=== PATIENT | female | born 1955 | race Hispanic/Latino ===

== ENCOUNTER 2022-11-11 14:32 | Emergency (ER) | payer OTHER ==
--- OUTSIDE RECORDS SUMMARY | 2022-11-11 14:37 | XMS REPORT | Continuity of Care Document ---
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 01-18 [facility] 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 00:00: Medical s/p simple s/p simple 00 Ce nter mastectomy mastectomy [id number] PAD Problem Common (periphera Spirit l artery - CHI disease) [facility] [id number] Type 2 Problem Common diabetes Spirit mellitus - [facility] with [facility] long-term current use of insulin 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 - [facility]I stage 3B disease ([facility] [id number] Osteoarthr Problem Co mmon itis of Spirit multiple - CHI joints, [facility] osteoarthr Center itis type [id number] Acquired Problem Comm on hypothyroi Spirit dism - CHI [facility] [id number] Mixed Problem Common hyperlipid Spirit emia - CHI [facility] [id number] 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, [facility] trigger [facility] [id number] Essential Problem Comm on hypertensi Spirit on [facility] [id number] Other Problem Common eczema [facility] [id number] Vitamin D Problem Comm on deficiency [facility] disease [facility] [id number] Age-relate Problem Com mon d Spirit osteoporos - [facility] is without [facility] pathologic [facility] Center fracture [id number] Noncomplia Problem Co mmon nce with Spirit dietary [facility] restrictio [facility] [id number] Hypocalcem Problem Comm on ia [facility] [id number] Pruritic Problem Comm on dermatitis [facility] [id number] Dermatitis Problem Co mmon [facility] Allergies, Adverse Reactions, Alerts This patient has no known allergies or adverse reactions. Social History Social Habit Start Date Stop Date Quantity Comments Source History of Common [facility] - Tobacco Use [facility] Alcohol intake 2016-01-20 2016-01-20 Current [facility] 00:00:00 00:00:00 non-drinker of Medical Ce nter alcohol (finding) Sex Assigned At [birth year] [facility] 00:00:00 00:00:00 [facility] Smoking Status Start Date Stop Date Source Never Smoker [facility] Medications Ordered Filled Start Stop Current Ordering Indication Dosage Frequency Signature Comments Components Source Medication Medication Date Date Medication? Clinician (SIG) Name Name Famotidine Famotidine 2020-07 No 1{table QD Famotidine 10 MG 10 MG 1-02 t} 10 MG 00:00: 00 Famotidine Famotidine 2020-07 No 1{table QD Famotidine 10 MG 10 MG 1-02 t} 10 MG 00:00: 00 Famotidine Famotidine 2020-07 No 1{table QD Famotidine 10 MG 10 MG 1-02 t} 10 MG 00:00: 00 Famotidine Famotidine 2020-07 No 1{table QD Famotidine 10 MG 10 MG 1-02 t} 10 MG 00:00: 00 Kenalog Kenalog 2020-07 No 40mg Common (Triamcinol (Triamcinol 0-19 S pirit one) one) 00:00: - CHI [facility] Kenalog Kenalog 2020-1 No 40mg Common (Triamcinol (Triamcinol 0-19 S pirit one) one) 00:00: - CHI 00 [facility] Kenalog Kenalog 2020- No 40mg Common (Triamcinol (Triamcinol 0-19 S pirit one) one) 00:00: - CHI 00 [facility] Kenalog Kenalog 2020- No 40mg Common (Triamcinol (Triamcinol 0-19 S pirit one) one) 00:00: - CHI 00 [facility] Triamcinolo Triamcinolo 2020-0 No 1{appli BID Triamcinol ne ne 6-02 cation} one Acetonide Acetonide 00:00: Acetonide 0.1 % 0.1 % 00 0.1 % Triamcinolo Triamcinolo 2020-0 No 1{appli BID Triamcinol ne ne 6-02 cation} one Acetonide Acetonide 00:00: Acetonide 0.1 % 0.1 % 00 0.1 % Triamcinolo Triamcinolo 2020-0 No 1{appli BID Triamcinol ne ne 6-02 cation} one Acetonide Acetonide 00:00: Acetonide 0.1 % 0.1 % 00 0.1 % Triamcinolo Triamcinolo 2020-0 No 1{appli BID Triamcinol ne ne 6-02 cation} one Acetonide Acetonide 00:00: Acetonide 0.1 % 0.1 % 00 0.1 % Triamcinolo Triamcinolo 2020-0 No 1{appli BID Triamcinol ne ne 6-02 cation} one Acetonide Acetonide 00:00: Acetonide 0.1 % 0.1 % 00 0.1 % Triamcinolo Triamcinolo 2020-0 No 1{appli BID Triamcinol ne ne 6-02 cation} one Acetonide Acetonide 00:00: Acetonide 0.1 % 0.1 % 00 0.1 % Triamcinolo Triamcinolo 1-0 No 1{appli BID Triamcinol ne ne 6-02 cation} one Acetonide Acetonide 00:00: Acetonide 0.1 % 0.1 % 00 0.1 % rosuvastati Yes 20mg QD Take [address] [facility] (CRESTOR) 7-14 by mouth Luke s 20 MG 09:01: daily. Medical tablet 09 Calpine olmesartan- Yes 1{tbl} QD Take [address] hydrochloro 7-14 tablet by Jeffery es thiazide 09:01: mouth Medical (BENICAR 09 daily. Calpine HCT) 40-25 mg per tablet cholecalcif Yes 1000U QD Take 1,[address] tavo, 7-14 Units by [id number] vitamin D3, 09:01: mouth Medic al 1,000 unit 09 daily. Calpine capsule levothyroxi Yes 88ug Take [address] ne 7-14 mcg by [place] (SYNTHROID, 09:01: mouth Medic al LEVOTHROID) 09 Every Center 88 MCG morning on tablet an empty stomach. Rosuvastati Rosuvastati Yes Long 1 tablet Common n Calcium n Calcium [facility] it - [facility] Meloxicam Meloxicam Yes Long 1 tablet Common Garrison as needed [facility] Amlodipine Amlodipine Yes Long 1 tablet Common Besylate Besylate Garrison [facility] Olmesartan Olmesartan Yes Long 1 tablet Common [facility] Alendronate Alendronate Yes Long 1 tablet Common Sodium Sodium Garrison 30 minutes Spir it before the - [facility] first [facility] beverage Medical or Calpine medicine of the day with plain water Levothyroxi Levothyroxi Yes Long 1 tablet Common ne Sodium ne Sodium Garrison in the Sp hailey morning on - CHI an empty [facility] stomach [facility] Vitamin D3 Vitamin D3 Yes Long 2 capsules Common Garrison [facility] Olmesartan Olmesartan No 1{table QD Olmesartan Medoxomil-H Medoxomil-H t} Medoxomil- CTZ 40-25 CTZ 40-25 HCTZ 40-25 MG MG MG Alendronate Alendronate No Alendronat Sodium 70 Sodium 70 e Sodium MG MG 70 MG amLODIPine amLODIPine No amLODIPine Besylate 5 Besylate 5 Besylate 5 MG MG MG Meloxicam Meloxicam No Meloxicam 7.5 MG 7.5 MG 7.5 MG Levothyroxi Levothyroxi No QD Levothyrox ne Sodium ne Sodium ine Sodium 100 MCG 100 MCG 100 MCG Vitamin D3 Vitamin D3 No 2{capsu QD Vitamin D3 25 MCG 25 MCG les} 25 MCG (1000 UT) (1000 UT) (1000 UT) Alendronate Alendronate No Alendronat Sodium 70 Sodium 70 e Sodium MG MG 70 MG Rosuvastati Rosuvastati No Rosuvastat n Calcium n Calcium in Calcium 20 MG 20 MG 20 MG amLODIPine amLODIPine No 1{table QD amLODIPine Besylate 5 Besylate 5 t} Besylate 5 MG MG MG Rosuvastati Rosuvastati No 1{table QD Rosuvastat n Calcium n Calcium t} in Calcium 20 MG 20 MG 20 MG Meloxicam Meloxicam No 1{table Meloxicam 7.5 MG 7.5 MG t_as_ne 7.5 MG eded} Levothyroxi Levothyroxi No QD Levothyrox ne Sodium ne Sodium ine Sodium 100 MCG 100 MCG 100 MCG Rosuvastati Rosuvastati No Rosuvastat n Calcium n Calcium in Calcium 20 MG 20 MG 20 MG amLODIPine amLODIPine No amLODIPine Besylate 5 Besylate 5 Besylate 5 MG MG MG Alendronate Alendronate No Alendronat Sodium 70 Sodium 70 e Sodium MG MG 70 MG amLODIPine amLODIPine No 1{table QD amLODIPine Besylate 5 Besylate 5 t} Besylate 5 MG MG MG methylPREDN methylPREDN No methylPRED ISolone 4 ISolone 4 NISolone 4 MG MG MG Vitamin D3 Vitamin D3 No 2{capsu QD Vitamin D3 25 MCG 25 MCG les} 25 MCG (1000 UT) (1000 UT) (1000 UT) Rosuvastati Rosuvastati No 1{table QD Rosuvastat n Calcium n Calcium t} in Calcium 20 MG 20 MG 20 MG Meloxicam Meloxicam No 1{table Meloxicam 7.5 MG 7.5 MG t_as_ne 7.5 MG eded} Meloxicam Meloxicam No Meloxicam 7.5 MG 7.5 MG 7.5 MG Alendronate Alendronate No Alendronat Sodium 70 Sodium 70 e Sodium MG MG 70 MG Olmesartan Olmesartan No 1{table QD Olmesartan Medoxomil-H Medoxomil-H t} Medoxomil- CTZ 40-25 CTZ 40-25 HCTZ 40-25 MG MG MG Rosuvastati Rosuvastati No 1{table QD Rosuvastat n Calcium n Calcium t} in Calcium 20 MG 20 MG 20 MG Meloxicam Meloxicam No 1{table Meloxicam 7.5 MG 7.5 MG t_as_ne 7.5 MG eded} amLODIPine amLODIPine No 1{table QD amLODIPine Besylate 5 Besylate 5 t} Besylate 5 MG MG MG Alendronate Alendronate No Alendronat Sodium 70 Sodium 70 e Sodium MG MG 70 MG methylPREDN methylPREDN No methylPRED ISolone 4 ISolone 4 NISolone 4 MG MG MG amLODIPine amLODIPine No amLODIPine Besylate 5 Besylate 5 Besylate 5 MG MG MG Levothyroxi Levothyroxi No QD Levothyrox ne Sodium ne Sodium ine Sodium 100 MCG 100 MCG 100 MCG Vitamin D3 Vitamin D3 No 2{capsu QD Vitamin D3 25 MCG 25 MCG les} 25 MCG (1000 UT) (1000 UT) (1000 UT) Alendronate Alendronate No Alendronat Sodium 70 Sodium 70 e Sodium MG MG 70 MG Olmesartan Olmesartan No 1{table QD Olmesartan Medoxomil-H Medoxomil-H t} Medoxomil- CTZ 40-25 CTZ 40-25 HCTZ 40-25 MG MG MG Rosuvastati Rosuvastati No Rosuvastat n Calcium n Calcium in Calcium 20 MG 20 MG 20 MG Meloxicam Meloxicam No Meloxicam 7.5 MG 7.5 MG 7.5 MG Rosuvastati Rosuvastati No 1{table QD Rosuvastat n Calcium n Calcium t} in Calcium 20 MG 20 MG 20 MG Meloxicam Meloxicam No 1{table Meloxicam 7.5 MG 7.5 MG t_as_ne 7.5 MG eded} amLODIPine amLODIPine No 1{table QD amLODIPine Besylate 5 Besylate 5 t} Besylate 5 MG MG MG Alendronate Alendronate No Alendronat Sodium 70 Sodium 70 e Sodium MG MG 70 MG methylPREDN methylPREDN No methylPRED ISolone 4 ISolone 4 NISolone 4 MG MG MG amLODIPine amLODIPine No amLODIPine Besylate 5 Besylate 5 Besylate 5 MG MG MG Levothyroxi Levothyroxi No QD Levothyrox ne Sodium ne Sodium ine Sodium 100 MCG 100 MCG 100 MCG Vitamin D3 Vitamin D3 No 2{capsu QD Vitamin D3 25 MCG 25 MCG les} 25 MCG (1000 UT) (1000 UT) (1000 UT) Alendronate Alendronate No Alendronat Sodium 70 Sodium 70 e Sodium MG MG 70 MG Olmesartan Olmesartan No 1{table QD Olmesartan Medoxomil-H Medoxomil-H t} Medoxomil- CTZ 40-25 CTZ 40-25 HCTZ 40-25 MG MG MG Rosuvastati Rosuvastati No Rosuvastat n Calcium n Calcium in Calcium 20 MG 20 MG 20 MG Meloxicam Meloxicam No Meloxicam 7.5 MG 7.5 MG 7.5 MG Rosuvastati Rosuvastati No 1{table QD Rosuvastat n Calcium n Calcium t} in Calcium 20 MG 20 MG 20 MG Meloxicam Meloxicam No 1{table Meloxicam 7.5 MG 7.5 MG t_as_ne 7.5 MG eded} amLODIPine amLODIPine No 1{table QD amLODIPine Besylate 5 Besylate 5 t} Besylate 5 MG MG MG Alendronate Alendronate No Alendronat Sodium 70 Sodium 70 e Sodium MG MG 70 MG methylPREDN methylPREDN No methylPRED ISolone 4 ISolone 4 NISolone 4 MG MG MG amLODIPine amLODIPine No amLODIPine Besylate 5 Besylate 5 Besylate 5 MG MG MG Levothyroxi Levothyroxi No QD Levothyrox ne Sodium ne Sodium ine Sodium 100 MCG 100 MCG 100 MCG Vitamin D3 Vitamin D3 No 2{capsu QD Vitamin D3 25 MCG 25 MCG les} 25 MCG (1000 UT) (1000 UT) (1000 UT) Alendronate Alendronate No Alendronat Sodium 70 Sodium 70 e Sodium MG MG 70 MG Olmesartan Olmesartan No 1{table QD Olmesartan Medoxomil-H Medoxomil-H t} Medoxomil- CTZ 40-25 CTZ 40-25 HCTZ 40-25 MG MG MG Rosuvastati Rosuvastati No Rosuvastat n Calcium n Calcium in Calcium 20 MG 20 MG 20 MG Meloxicam Meloxicam No Meloxicam 7.5 MG 7.5 MG 7.5 MG amLODIPine amLODIPine No 1{table QD amLODIPine Besylate 5 Besylate 5 t} Besylate 5 MG MG MG Alendronate Alendronate No Alendronat Sodium 70 Sodium 70 e Sodium MG MG 70 MG Vitamin D3 Vitamin D3 No 2{capsu QD Vitamin D3 25 MCG 25 MCG les} 25 MCG (1000 UT) (1000 UT) (1000 UT) Rosuvastati Rosuvastati No 1{table QD Rosuvastat n Calcium n Calcium t} in Calcium 20 MG 20 MG 20 MG Olmesartan Olmesartan No 1{table QD Olmesartan Medoxomil-H Medoxomil-H t} Medoxomil- CTZ 40-25 CTZ 40-25 HCTZ 40-25 MG MG MG Levothyroxi Levothyroxi No QD Levothyrox ne Sodium ne Sodium ine Sodium 100 MCG 100 MCG 100 MCG Meloxicam Meloxicam No 1{table Meloxicam 7.5 MG 7.5 MG t_as_ne 7.5 MG eded} Rosuvastati Rosuvastati No 1{table QD Rosuvastat n Calcium n Calcium t} in Calcium 20 MG 20 MG 20 MG Alendronate Alendronate No Alendronat Sodium 70 Sodium 70 e Sodium MG MG 70 MG Levothyroxi Levothyroxi No Levothyrox ne Sodium ne Sodium ine Sodium 88 MCG 88 MCG 88 MCG Olmesartan Olmesartan No Olmesartan Medoxomil-H Medoxomil-H Medoxomil- CTZ 40-25 CTZ 40-25 HCTZ 40-25 MG MG MG Levothyroxi Levothyroxi No QD Levothyrox ne Sodium ne Sodium ine Sodium 100 MCG 100 MCG 100 MCG amLODIPine amLODIPine No 1{table QD amLODIPine Besylate 5 Besylate 5 t} Besylate 5 MG MG MG Vitamin D3 Vitamin D3 No 2{capsu QD Vitamin D3 25 MCG 25 MCG les} 25 MCG (1000 UT) (1000 UT) (1000 UT) Meloxicam Meloxicam No 1{table Meloxicam 7.5 MG 7.5 MG t_as_ne 7.5 MG eded} Rosuvastati Rosuvastati No 1{table QD Rosuvastat n Calcium n Calcium t} in Calcium 20 MG 20 MG 20 MG Olmesartan Olmesartan No 1{table QD Olmesartan Medoxomil-H Medoxomil-H t} Medoxomil- CTZ 40-25 CTZ 40-25 HCTZ 40-25 MG MG MG Meloxicam Meloxicam No 1{table Meloxicam 7.5 MG 7.5 MG t_as_ne 7.5 MG eded} amLODIPine amLODIPine No amLODIPine Besylate 5 Besylate 5 Besylate 5 MG MG MG Levothyroxi Levothyroxi No Levothyrox ne Sodium ne Sodium ine Sodium 88 MCG 88 MCG 88 MCG Rosuvastati Rosuvastati No Rosuvastat n Calcium n Calcium in Calcium 20 MG 20 MG 20 MG amLODIPine amLODIPine No 1{table QD amLODIPine Besylate 5 Besylate 5 t} Besylate 5 MG MG MG Alendronate Alendronate No Alendronat Sodium 70 Sodium 70 e Sodium MG MG 70 MG Alendronate Alendronate No Alendronat Sodium 70 Sodium 70 e Sodium MG MG 70 MG Levothyroxi Levothyroxi No QD Levothyrox ne Sodium ne Sodium ine Sodium 100 MCG 100 MCG 100 MCG Vitamin D3 Vitamin D3 No 2{capsu QD Vitamin D3 25 MCG 25 MCG les} 25 MCG (1000 UT) (1000 UT) (1000 UT) Olmesartan Olmesartan No Olmesartan Medoxomil-H Medoxomil-H Medoxomil- CTZ 40-25 CTZ 40-25 HCTZ 40-25 MG MG MG Levothyroxi Levothyroxi No Levothyrox ne Sodium ne Sodium ine Sodium 88 MCG 88 MCG 88 MCG amLODIPine amLODIPine No amLODIPine Besylate 5 Besylate 5 Besylate 5 MG MG MG Alendronate Alendronate No Alendronat Sodium 70 Sodium 70 e Sodium MG MG 70 MG Meloxicam Meloxicam No 1{table Meloxicam 7.5 MG 7.5 MG t_as_ne 7.5 MG eded} Rosuvastati Rosuvastati No Rosuvastat n Calcium n Calcium in Calcium 20 MG 20 MG 20 MG Vitamin D3 Vitamin D3 No 2{capsu QD Vitamin D3 25 MCG 25 MCG les} 25 MCG (1000 UT) (1000 UT) (1000 UT) Olmesartan Olmesartan No Olmesartan Medoxomil-H Medoxomil-H Medoxomil- CTZ 40-25 CTZ 40-25 HCTZ 40-25 MG MG MG Rosuvastati Rosuvastati No 1{table QD Rosuvastat n Calcium n Calcium t} in Calcium 20 MG 20 MG 20 MG Levothyroxi Levothyroxi No QD Levothyrox ne Sodium ne Sodium ine Sodium 100 MCG 100 MCG 100 MCG Alendronate Alendronate No Alendronat Sodium 70 Sodium 70 e Sodium MG MG 70 MG amLODIPine amLODIPine No 1{table QD amLODIPine Besylate 5 Besylate 5 t} Besylate 5 MG MG MG Alendronate Alendronate No Alendronat Sodium 70 Sodium 70 e Sodium MG MG 70 MG amLODIPine amLODIPine No amLODIPine Besylate 5 Besylate 5 Besylate 5 MG MG MG Rosuvastati Rosuvastati No 1{table QD Rosuvastat n Calcium n Calcium t} in Calcium 20 MG 20 MG 20 MG amLODIPine amLODIPine No 1{table QD amLODIPine Besylate 5 Besylate 5 t} Besylate 5 MG MG MG Vitamin D3 Vitamin D3 No 2{capsu QD Vitamin D3 25 MCG 25 MCG les} 25 MCG (1000 UT) (1000 UT) (1000 UT) Levothyroxi Levothyroxi No QD Levothyrox ne Sodium ne Sodium ine Sodium 100 MCG 100 MCG 100 MCG Levothyroxi Levothyroxi No Levothyrox ne Sodium ne Sodium ine Sodium 88 MCG 88 MCG 88 MCG Meloxicam Meloxicam No 1{table Meloxicam 7.5 MG 7.5 MG t_as_ne 7.5 MG eded} Olmesartan Olmesartan No 1{table QD Olmesartan Medoxomil-H Medoxomil-H t} Medoxomil- CTZ 40-25 CTZ 40-25 HCTZ 40-25 MG MG MG Alendronate Alendronate No Alendronat Sodium 70 Sodium 70 e Sodium MG MG 70 MG Rosuvastati Rosuvastati No Rosuvastat n Calcium n Calcium in Calcium 20 MG 20 MG 20 MG Olmesartan Olmesartan No Olmesartan Medoxomil-H Medoxomil-H Medoxomil- CTZ 40-25 CTZ 40-25 HCTZ 40-25 MG MG MG Rosuvastati Rosuvastati No Rosuvastat n Calcium n Calcium in Calcium 20 MG 20 MG 20 MG Vitamin D3 Vitamin D3 No 2{capsu QD Vitamin D3 25 MCG 25 MCG les} 25 MCG (1000 UT) (1000 UT) (1000 UT) amLODIPine amLODIPine No amLODIPine Besylate 5 Besylate 5 Besylate 5 MG MG MG Levothyroxi Levothyroxi No Levothyrox ne Sodium ne Sodium ine Sodium 88 MCG 88 MCG 88 MCG Levothyroxi Levothyroxi No QD Levothyrox ne Sodium ne Sodium ine Sodium 100 MCG 100 MCG 100 MCG Olmesartan Olmesartan No 1{table QD Olmesartan Medoxomil-H Medoxomil-H t} Medoxomil- CTZ 40-25 CTZ 40-25 HCTZ 40-25 MG MG MG Alendronate Alendronate No Alendronat Sodium 70 Sodium 70 e Sodium MG MG 70 MG amLODIPine amLODIPine No 1{table QD amLODIPine Besylate 5 Besylate 5 t} Besylate 5 MG MG MG Meloxicam Meloxicam No 1{table Meloxicam 7.5 MG 7.5 MG t_as_ne 7.5 MG eded} Olmesartan Olmesartan No Olmesartan Medoxomil-H Medoxomil-H Medoxomil- CTZ 40-25 CTZ 40-25 HCTZ 40-25 MG MG MG Alendronate Alendronate No Alendronat Sodium 70 Sodium 70 e Sodium MG MG 70 MG Rosuvastati Rosuvastati No 1{table QD Rosuvastat n Calcium n Calcium t} in Calcium 20 MG 20 MG 20 MG Rosuvastati Rosuvastati No Rosuvastat n Calcium n Calcium in Calcium 20 MG 20 MG 20 MG Alendronate Alendronate No Alendronat Sodium 70 Sodium 70 e Sodium MG MG 70 MG Levothyroxi Levothyroxi No QD Levothyrox ne Sodium ne Sodium ine Sodium 100 MCG 100 MCG 100 MCG Vitamin D3 Vitamin D3 No 2{capsu QD Vitamin D3 25 MCG 25 MCG les} 25 MCG (1000 UT) (1000 UT) (1000 UT) Meloxicam Meloxicam No Meloxicam 7.5 MG 7.5 MG 7.5 MG Meloxicam Meloxicam No 1{table Meloxicam 7.5 MG 7.5 MG t_as_ne 7.5 MG eded} Alendronate Alendronate No Alendronat Sodium 70 Sodium 70 e Sodium MG MG 70 MG Rosuvastati Rosuvastati No 1{table QD Rosuvastat n Calcium n Calcium t} in Calcium 20 MG 20 MG 20 MG Olmesartan Olmesartan No 1{table QD Olmesartan Medoxomil-H Medoxomil-H t} Medoxomil- CTZ 40-25 CTZ 40-25 HCTZ 40-25 MG MG MG amLODIPine amLODIPine No amLODIPine Besylate 5 Besylate 5 Besylate 5 MG MG MG amLODIPine amLODIPine No amLODIPine Besylate 5 Besylate 5 Besylate 5 MG MG MG Rosuvastati Rosuvastati No 1{table QD Rosuvastat n Calcium n Calcium t} in Calcium 20 MG 20 MG 20 MG Olmesartan Olmesartan No 1{table QD Olmesartan Medoxomil-H Medoxomil-H t} Medoxomil- CTZ 40-25 CTZ 40-25 HCTZ 40-25 MG MG MG amLODIPine amLODIPine No 1{table QD amLODIPine Besylate 5 Besylate 5 t} Besylate 5 MG MG MG Vitamin D3 Vitamin D3 No 2{capsu QD Vitamin D3 25 MCG 25 MCG les} 25 MCG (1000 UT) (1000 UT) (1000 UT) Levothyroxi Levothyroxi No QD Levothyrox ne Sodium ne Sodium ine Sodium 100 MCG 100 MCG 100 MCG Meloxicam Meloxicam No 1{table Meloxicam 7.5 MG 7.5 MG t_as_ne 7.5 MG eded} Alendronate Alendronate No Alendronat Sodium 70 Sodium 70 e Sodium MG MG 70 MG Rosuvastati Rosuvastati No Rosuvastat n Calcium n Calcium in Calcium 20 MG 20 MG 20 MG Alendronate Alendronate No Alendronat Sodium 70 Sodium 70 e Sodium MG MG 70 MG Meloxicam Meloxicam No Meloxicam 7.5 MG 7.5 MG 7.5 MG Immunizations Ordered Immunization Filled Immunization Date Status Commen ts Source Name Name Flucelvax - single Flucelvax - single 2022-05-12 Completed [facility] dose syringe dose syringe 09:59:00 - [facility] FluAD FluAD 2021-05-03 Completed [facility] 09:56:00 - [facility] FluAD FluAD 2021-05-03 Completed [facility] 09:56:00 - [facility] FluAD FluAD 2021-05-03 Completed [facility] 09:56:00 [facility] FluAD FluAD 2021-05-03 Completed [facility] 09:56:00 [facility] FluAD FluAD 2021-05-03 [facility] Com[facility] 09:56:00 - [facility] FluAD FluAD 2021-05-03 Completed [facility] 09:56:00 [facility] FluAD FluAD 2021-05-03 Completed [facility] 09:56:00 - [facility] FluAD FluAD 2021-05-03 Completed [facility] 09:56:00 - [facility] FluAD FluAD 2021-05-03 Completed [facility] 09:56:00 [facility] 2021-04-27 Completed [facility] (Triamcinolone) (Triamcinolone) 09:22:00 [facility] 2021-04-27 Completed [facility] (Triamcinolone) (Triamcinolone) 09:22:00 [facility] Vital Signs Vital Name Observation Time Observation Value Comments Source height 2022-05-12 09:40:00 62.25 [in_i] [facility] weight 2022-05-12 09:40:00 167.3 [lb_av] [facility] temperature 2022-05-12 09:40:00 97.7 [degF] [facility] bmi 2022-05-12 09:40:00 30.35 kg/m2 [facility] oximetry 2022-05-12 09:40:00 99 % [facility] respiratory rate 2022-05-12 09:40:00 18 /min Comm on [facility] blood pressure 2022-05-12 09:40:00 138 mm[Hg] [facility] - systolic [facility] blood pressure 2022-05-12 09:40:00 64 mm[Hg] [facility] - diastolic [facility] height 2022-02-09 10:10:00 62.25 [in_i] Common [facility] weight 2022-02-09 10:10:00 163.1 [lb_av] Common [facility] temperature 2022-02-09 10:10:00 97.2 [degF] Common S pirit [facility] bmi 2022-02-09 10:10:00 29.59 kg/m2 Common S [facility] oximetry 2022-02-09 10:10:00 99 % Common S [facility] respiratory rate 2022-02-09 10:10:00 18 /min Comm on [facility] blood pressure 2022-02-09 10:10:00 140 mm[Hg] [facility] - systolic [facility] blood pressure 2022-02-09 10:10:00 76 mm[Hg] Common [facility] - diastolic [facility] height 2021-11-10 10:40:00 64 [in_i] Common [facility] weight 2021-11-10 10:40:00 170.4 [lb_av] [facility] temperature 2021-11-10 10:40:00 97.9 [degF] Common S pirit [facility] bmi 2021-11-10 10:40:00 29.25 kg/m2 Common S pirit [facility] oximetry 2021-11-10 10:40:00 100 % [facility] 2021-11-10 10:40:00 18 /min Comm on [facility] blood pressure 2021-11-10 10:40:00 137 mm[Hg] Common [facility] - systolic [facility] blood pressure 2021-11-10 10:40:00 76 mm[Hg] [facility] - diastolic [facility] height 2021-08-05 09:30:00 64 [in_i] Common S pirit [facility] weight 2021-08-05 09:30:00 172.2 [lb_av] [facility] temperature 2021-08-05 09:30:00 97.0 [degF] Common S pirit [facility] bmi 2021-08-05 09:30:00 29.55 kg/m2 Common S pirit [facility] oximetry 2021-08-05 09:30:00 90 % Common S [facility] respiratory rate 2021-08-05 09:30:00 17 /min Comm on [facility] blood pressure 2021-08-05 09:30:00 136 mm[Hg] [facility] - systolic [facility] blood pressure 2021-08-05 09:30:00 83 mm[Hg] [facility] - diastolic [facility] height 2021-08-05 10:00:00 64 [in_i] [facility] 2021-08-05 10:00:00 172.2 [lb_av] [facility] temperature 2021-08-05 10:00:00 97.0 [degF] Common S pirit [facility] bmi 2021-08-05 10:00:00 29.55 kg/m2 [facility] S [facility] oximetry 2021-08-05 10:00:00 90 % [facility] 2021-08-05 10:00:00 17 /min Comm on [facility] blood pressure 2021-08-05 10:00:00 136 mm[Hg] Common Spirit - systolic [facility] blood pressure 2021-08-05 10:00:00 83 mm[Hg] Common Spirit - diastolic [facility] height 2021-06-10 09:20:00 64 [in_i] Common S pirit [facility] weight 2021-06-10 09:20:00 173.3 [lb_av] Common [facility] temperature 2021-06-10 09:20:00 98.1 [degF] Common [facility] bmi 2021-06-10 09:20:00 29.74 kg/m2 Common S [facility] oximetry 2021-06-10 09:20:00 93 % [facility] respiratory rate 2021-06-10 09:20:00 17 /min Comm on [facility] blood pressure 2021-06-10 09:20:00 136 mm[Hg] Common [facility] systolic [facility] blood pressure 2021-06-10 09:20:00 84 mm[Hg] Common [facility] diastolic [facility] respiratory rate 2021-04-27 09:30:00 19 /min Comm on [facility] blood pressure 2021-04-27 09:30:00 132 mm[Hg] Common [facility] - systolic [facility] blood pressure 2021-04-27 09:30:00 70 mm[Hg] Common [facility] - diastolic [facility] height 2021-04-27 09:30:00 64 [in_i] [facility] weight 2021-04-27 09:30:00 179.6 [lb_av] Common [facility] temperature 2021-04-27 09:30:00 97.3 [degF] [facility] bmi 2021-04-27 09:30:00 30.82 kg/m2 [facility] oximetry 2021-04-27 09:30:00 99 % [facility] Procedures This patient has no known procedures. Encounters Start End Encounter Admission Attending Care Care Encounter Source Date/Time Date/Time Type Type Clinicians Facility Department ID 2022-06-23 Outpatient GarrisonRADHA meza [facility] [id number] Common 08:20:01 Long [id number] [facility] 2022-05-10 [facility] [id number] Common 13:18:00 Long [facility] 2021-11-08 Outpatient Garrison, STLMLC STLMLC [id number] Common 16:17:01 Long [facility] 2021-08-05 Outpatient Garrison, STLMLC STLMLC [id number] Common 09:36:02 Long [facility] 2021-08-04 Outpatient Garrison, STLMLC STLMLC [id number] Common 14:39:55 Long [facility] 2021-08-04 Outpatient Garrison, STLMLC STLMLC [id number] Common 14:01:37 Long [facility] 2021-08-04 Outpatient Garrison, STLMLC STLMLC [id number] Common 11:17:25 Long [id number] [facility] 2021-08-04 Outpatient Garrison, STLMLC STLMLC [id number] Common 11:15:39 Long [id number] [facility] 2022-05-12 2022-05-12 OFFICE STLMLC STLMLC [id number] Co mmon 00:00:00 00:00:00 VISIT [facility] - CHI LEVEL [address] [place] [address] 2022-02-09 2022-02-09 OFFICE STLMLC STLMLC [id number] Co mmon 00:00:00 00:00:00 VISIT [facility] PT - CHI LEVEL [address] [place] [address] 2021-11-12 2021-11-12 (TEL) STLMLC STLMLC [id number] Co mmon 00:00:00 00:00:00 [facility] 2021-11-10 2021-11-10 OFFICE STLMLC STLMLC [id number] Co mmon 00:00:00 00:00:00 VISIT [facility] - CHI LEVEL [address] [place] [address] 2021-08-05 2021-08-05 OFFICE STLMLC STLMLC [id number] Co mmon 00:00:00 00:00:00 VISIT [facility] EST[facility] PT - CHI LEVEL 4 [facility] 2021-08-05 2021-08-05 SUB ANNUAL STLMLC STLMLC [id number] Common 00:00:00 00:00:00 MCR [facility] - [facility] VISIT [facility] 2021-06-23 2021-06-23 (TEL) STLMLC STLMLC [id number] Co mmon 00:00:00 00:00:00 [facility] 2021-06-21 2021-06-21 (TEL) STLMLC STLMLC [id number] Co mmon 00:00:00 00:00:00 [facility] 2021-06-10 2021-06-10 OFFICE STLMLC STLMLC [id number] Co mmon 00:00:00 00:00:00 VISIT [facility] PT - CHI [address] 2021-05-11 2021-05-11 (TEL) STLMLC STLMLC [id number] Co mmon 00:00:00 00:00:00 [facility] 2021-05-03 2021-05-03 (INJ) STLMLC STLMLC [id number] Co mmon 00:00:00 00:00:00 Injection Spir it [facility] 2021-04-27 2021-04-27 OFFICE STLMLC STLMLC [id number] Co mmon 00:00:00 00:00:00 VISIT [facility] PT - CHI [address] 2021-04-26 2021-04-26 (TEL) STLMLC STLMLC [id number] Co mmon 00:00:00 00:00:00 [facility] 2021-01-25 2021-01-25 Outpatient STLMLC STLMLC [id number] Common 00:00:00 00:00:00 [facility] 2020-12-09 2020-12-09 Outpatient STLMLC STLMLC [id number] Common 00:00:00 00:00:00 [facility] 2020-12-08 2020-12-08 Outpatient STLMLC STLMLC [id number] Common 00:00:00 00:00:00 [facility] 2020-10-23 2020-10-23 Outpatient STLMLC STLMLC [id number] Common 00:00:00 00:00:00 [facility] 2020-10-20 2020-10-20 Outpatient STLMLC STLMLC [id number] Common 00:00:00 00:00:00 [facility] 2020-09-04 2020-09-04 Outpatient STLMLC STLMLC [id number] Common 00:00:00 00:00:00 [facility] 2020-07-24 2020-07-24 Outpatient STLMLC STLMLC [id number] Common 00:00:00 00:00:00 [facility] 2020-07-24 2020-07-24 Outpatient STLMLC STLMLC [id number] Common 00:00:00 00:00:00 [facility] 2020-05-07 2020-05-07 Outpatient STLMLC STLMLC [id number] Common 00:00:00 00:00:00 [facility] 2020-02-06 2020-02-06 [id number] Common 11:00:00 11:00:[address] [facility] 2019-10-18 2019-10-18 [facility] [id number] Common 11:38:00 11:38:[address] [facility] 2019-10-02 2019-10-02 [facility] [id number] Common 08:30:00 08:30:[address] [facility] Results Test Description Test Time Test Comments Results Result Comments Source HEMOGLOBIN A1C 2022-02-09 00:00:00 Test Item Value Reference Range Interpretation Comme nts A1C (test code = 4548-4) 5.8
--- NOTE | 2022-11-11 15:50 | RAD REPORT ---
EXAM DESCRIPTION: CT - Head Brain Wo Cont - 11/11/2022 3:38 pm CLINICAL HISTORY: PAIN COMPARISON: No comparisons TECHNIQUE: All CT scans are performed using dose optimization technique as appropriate and may inclu de automated exposure control or mA/KV adjustment according to patient size. FINDINGS: No intracranial hemorrhage, hydrocephalus or extra-axial fluid collection.No areas of brai n edema or evidence of midline shift. The paranasal sinuses and mastoids are clear. The calvarium is intact. IMPRESSION: No acute intracranial abnormality.
--- NOTE | 2022-11-11 16:43 | RAD REPORT ---
EXAM DESCRIPTION: RAD - Thoracic Spine Ap/Lat - 11/11/2022 4:36 pm CLINICAL HISTORY: PAIN COMPARISON: <Comparisons> FINDINGS/IMPRESSION: No acute fracture. Mild levoconvex curvature. Scattered endplate spurring. Dis c heights are fairly well-maintained. Osteopenia.
--- NOTE | 2022-11-11 16:50 | EDPHYS ---
Physician Documentation [facility] Name: Yu Joseph Age: 67 yrs Sex: Female : 1955 Arrival Date: 11/11/2022 Time: 14:32 Bed 14 Private MD: ED Physician Jaime Lewis HPI: 11/11 15:16 This 67 yrs old Female presents to ER via Ambulatory with complaints of Fall bs3 Injury, Head Injury Without LOC-Adult. 15:38 Patient notes that she slipped and fell cleaning bathroom, hit her head, no loc, bs3 confusion or amnesia, no vomiting, able to ambulate afterwards, c/o pain at back of head and right elbow, no other complaints. . Historical: - Allergies: 14:51 No Known Allergies; vg1 - Home Meds: 14:51 Aspirin Oral as needed [Active]; vg1 - PMHx: 14:51 Hypertensive disorder; Breast Cancer; Hypothyroidism; vg1 - PSHx: 14:51 Mastectomy; vg1 - Immunization history:: Client reports receiving the 2nd dose of the Covid vaccine. - Social history:: Smoking status: Patient denies any tobacco usage or history of. - Immunization history: Last tetanus immunization: unknown. ROS: 15:38 Constitutional: Negative for fever, chills bs3 15:38 All other systems are negative. Exam: 15:38 Constitutional: This is a well developed, well nourished patient who is awake, alert, bs3 and in no acute distress. Head/Face: Normocephalic, atraumatic. pain to palpation of occiput Eyes: Pupils equal round and reactive to light, extra-ocular motions intact. Lids and lashes normal. ENT: mmm, no posterior phyarngeal erythema Neck: Trachea midline, no thyromegaly, no neck stiffness Chest/axilla: Normal chest wall appearance and motion. Nontender with no deformity. No lesions are appreciated. Cardiovascular: Regular rate and rhythm with a normal S1 and S2. symmetric pulses in upper extremities Respiratory: Lungs have equal breath sounds bilaterally, clear to auscultation, no respiratory distress Abdomen/GI: Soft, non-tender, no rebound or guarding Back: +tenderness in mid t spine, No costovertebral tenderness. Full range of motion. Skin: Warm, dry with normal turgor. Normal color with no rashes, no lesions, and no evidence of cellulitis. MS/ Extremity: Pulses equal, no cyanosis. Neurovascular intact. Full, normal range of motion. No focal bony tenderness on right elbow, but small hematoma Neuro: Awake and alert, GCS 15, oriented to person, place, time, and situation. Cranial nerves II-XII grossly intact. Motor strength 5/5 in all extremities. Sensory grossly intact. Vital Signs: 14:51 BP 136 / 90; Pulse 90; Resp 16; Temp 98.8(O); Pulse Ox 100% on R/A; Weight 69.85 kg; vg1 Height 5 ft. 5 in. ; 14:51 Body Mass Index 25.63 (69.85 kg, 165.1 cm) vg1 [place] Coma Score: 14:54 Eye Response: spontaneous(4). Motor Response: obeys commands(6). Verbal Response: vg1 oriented(5). Total: 15. Trauma Score (Adult): 14:54 Eye Response: spontaneous(1); Verbal Response: oriented(1); Motor Response: obeys vg1 commands(2); Systolic BP: > 89 mm Hg(4); Respiratory Rate: 10 to 29 per min(4); Thomas Score: 15; Trauma Score: 12 MDM: 14:34 Patient medically screened. bs3 15:38 Differential diagnosis: abrasion, closed head injury, fracture, sprain, strain. Data bs3 reviewed: vital signs, nurses notes. 15:56 Independent interpretation of the following test(s) in the Emergency Department CT bs3 Scan: My interpretation is No ICH. 16:49 ED course: Thoracic spine negative for acute fracture will discharge home return bs3 precautions given. 11/11 15:23 Order name: XRAY Thoracic Spine (Ap/lat); Complete Time: 16:49 bs3 11/11 15:23 Order name: CT Head Brain wo Cont; Complete Time: 15:56 bs3 Administered Medications: No medications were administered Disposition Summary: 11/11/22 16:49 Discharge Ordered Location: Home bs3 Problem: new bs3 Symptoms: have improved bs3 Condition: Stable bs3 Diagnosis - Contusion of scalp, initial encounter bs3 - Abrasion of right elbow bs3 - Pain in thoracic spine bs3 Followup: bs3 - With: Private Physician - When: 2 - 3 days - Reason: Recheck today's complaints Discharge Instructions: - Discharge Summary Sheet bs3 - Acute Back Pain, Adult bs3 - Facial or Scalp Contusion bs3 - Musculoskeletal Pain bs3 Forms: - Medication Reconciliation Form bs3 - Thank You Letter bs3 - Antibiotic Education bs3 - Prescription Opioid Use bs3 Signatures: Dispatcher [employer] EDArchana Jenkins RN RN ap3 Carissa Orantes RN RN vg1 Jaime Lewis MD MD bs3 Corrections: (The following items were deleted from the chart) 14:53 14:51 PMHx: Hypothyroidism; vg1 vg1 15:58 15:38 Constitutional: This is a well developed, well nourished patient who is awake, bs3 alert, and in no acute distress. Head/Face: Normocephalic, atraumatic. pain to palpation of occiput Eyes: Pupils equal round and reactive to light, extra-ocular motions intact. Lids and lashes normal. ENT: mmm, no posterior phyarngeal erythema Neck: Trachea midline, no thyromegaly, no neck stiffness Chest/axilla: Normal chest wall appearance and motion. Nontender with no deformity. No lesions are appreciated. Cardiovascular: Regular rate and rhythm with a normal S1 and S2. symmetric pulses in upper extremities Respiratory: Lungs have equal breath sounds bilaterally, clear to auscultation, no respiratory distress Abdomen/GI: Soft, non-tender, no rebound or guarding Back: +tenderness in mid t spine, No costovertebral tenderness. Full range of motion. Skin: Warm, dry with normal turgor. Normal color with no rashes, no lesions, and no evidence of cellulitis. MS/ Extremity: Pulses equal, no cyanosis. Neurovascular intact. Full, normal range of motion. Neuro: Awake and alert, GCS 15, oriented to person, place, time, and situation. Cranial nerves II-XII grossly intact. Motor strength 5/5 in all extremities. Sensory grossly intact. bs3
--- NOTE | 2022-11-11 16:50 | ER ---
Nurse's Notes [facility] Name: Yu Joseph Age: 67 yrs Sex: Female : 1955 Arrival Date: 11/11/2022 Time: 14:32 Bed 14 Private MD: Diagnosis: Contusion of scalp, initial encounter;Abrasion of right elbow;Pain in thoracic spine Presentation: 11/11 14:48 Chief complaint: Patient states: pt was cleaning the shower and stepped out and slipped vg1 on the tile and hit back of head, denies LOC, states h/a, lightheaded, "eyes feel heavy", denies NV. Care prior to arrival: None. Mechanism of Injury: Fall from standing position. Trauma event details: Injury occurred in the [facility]. 14:48 Acuity: OCTAVIO 3 vg1 14:48 Method Of Arrival: Ambulatory vg1 14:51 Coronavirus screen: Vaccine status: Patient reports receiving the 2nd dose of the covid vg1 vaccine. Client denies travel out of the [place] in the last 14 days. Ebola Screen: Patient negative for fever greater than or equal to 101.5 degrees Fahrenheit, and additional compatible Ebola Virus Disease symptoms Patient denies exposure to infectious person. Patient denies travel to an Ebola-affected area in the 21 days before illness onset. Initial Sepsis Screen: Does the patient meet any 2 criteria? No. Patient's initial sepsis screen is negative. Does the patient have a suspected source of infection? No. Patient's initial sepsis screen is negative. Risk Assessment: Do you want to hurt yourself or someone else? Patient reports no desire to harm self or others. Onset of symptoms was November 11, 2022. Triage Assessment: 14:51 General: Appears in no apparent distress. uncomfortable, Behavior is calm, cooperative. vg1 Pain: Complains of pain in head Pain currently is 10 out of 10 on a pain scale. Pain began 30 min ago. Neuro: Level of Consciousness is awake, alert, obeys commands, Oriented to person, place, time, situation, Reports headache. Historical: - Allergies: 14:51 No Known Allergies; vg1 - Home Meds: 14:51 Aspirin Oral as needed [Active]; vg1 - PMHx: 14:51 Hypertensive disorder; Breast Cancer; Hypothyroidism; vg1 - PSHx: 14:51 Mastectomy; vg1 - Immunization history:: Client reports receiving the 2nd dose of the Covid vaccine. - Social history:: Smoking status: Patient denies any tobacco usage or history of. - Immunization history: Last tetanus immunization: unknown. Screenin:54 Abuse screen: Denies threats or abuse. Denies injuries from another. Nutritional vg1 screening: No deficits noted. Tuberculosis screening: No symptoms or risk factors identified. 15:24 [facility] ED Fall Risk Assessment (Adult) History of falling in the last 3 months, ap3 including since admission Yes- single mechanical fall (1 pt) Confusion or Disorientation No (0 pts) Intoxicated or Sedated No (0 pts) Impaired Gait No (0 pts) Mobility Assist Device Used No (0 pt) Altered Elimination No (0 pt). Primary Survey: 14:54 NO uncontrolled hemorrhage observed. A: The client is awake and alert. The airway is vg1 patent. Breathing/Chest: Spontaneous respiratory effort, equal unlabored respirations, breath sounds clear bilaterally, regular pattern, symmetrical chest rise and fall. Circulation: No external hemorrhage present. Regular and strong central pulse, skin warm/dry/normal color. Disability Client is alert. Exposure/Environment: All clothing and personal items were removed. Forensic evidence collection is not deemed to be indicated at this time. Items placed in patient belonging bag. There is no evidence of uncontrolled external bleeding. No obvious injuries are noted at this time. 15:23 Reassessment Alertness and Airway: Awake and alert. The airway is patent. Airway Patent ap3 Oxygen No O2 Breathing: Spontaneous respiratory effort, equal unlabored respirations, breath sounds clear bilaterally, regular pattern with symmetrical chest rise and fall. Respiratory effort Spontaneous Breath sounds Clear Respiratory pattern Regular Chest inspection Symmetrical Circulation: No external hemorrhage noted. Regular and strong central pulse, skin warm/dry/normal color. Disability: Alert. Secondary Survey: 14:54 HEENT: Head Other headache. Gastrointestinal: Abdomen is soft. : No signs and/or vg1 symptoms were reported regarding the genitourinary system. Musculoskeletal: Circulation, motion, and sensation intact. Vital Signs: 14:51 BP 136 / 90; Pulse 90; Resp 16; Temp 98.8(O); Pulse Ox 100% on R/A; Weight 69.85 kg; vg1 Height 5 ft. 5 in. ; 14:51 Body Mass Index 25.63 (69.85 kg, 165.1 cm) vg1 [place] Coma Score: 14:54 Eye Response: spontaneous(4). Motor Response: obeys commands(6). Verbal Response: vg1 oriented(5). Total: 15. Trauma Score (Adult): 14:54 Eye Response: spontaneous(1); Verbal Response: oriented(1); Motor Response: obeys vg1 commands(2); Systolic BP: > 89 mm Hg(4); Respiratory Rate: 10 to 29 per min(4); [place] Score: 15; Trauma Score: 12 ED Course: 14:33 Patient arrived in ED. rg4 14:34 Jaime Lewis MD is Attending Physician. bs3 14:51 Triage completed. vg1 14:51 Arm band placed on. vg1 14:54 Patient maintains SpO2 saturation greater than 95% on room air. vg1 15:23 Archana Villeda, RN is Primary Nurse. ap3 15:23 Thermoregulation: warm blanket given to patient. ap3 15:24 Patient has correct armband on for positive identification. Bed in low position. Call ap3 light in reach. Side rails up X2. Adult w/ patient. Pulse ox on. NIBP on. Door closed. Noise minimized. Warm blanket given. 15:39 CT Head Brain wo Cont In Process Unspecified. EDMS 16:37 XRAY Thoracic Spine (Ap/lat) In Process Unspecified. EDMS 16:57 No provider procedures requiring assistance completed. Patient did not have IV access ap3 during this emergency room visit. Administered Medications: No medications were administered Medication: 16:57 VIS not applicable for this client. ap3 Intake: 16:57 PO: 0ml; IV: 0ml; Tubes: 0ml (); Total: 0ml. ap3 Output: 16:57 Urine: 0ml; Total: 0ml. ap3 Outcome: 16:49 Discharge ordered by . bs3 16:57 Discharged to home ambulatory. ap3 16:57 Condition: good 16:57 Discharge instructions given to patient, family, Instructed on discharge instructions, follow up and referral plans. Demonstrated understanding of instructions, follow-up care. 16:58 Patient's length of stay was not longer than 2 hours. ap3 16:58 Patient left the ED. ap3 Signatures: Dispatcher [employer] Glenny De La Torre rg4 Archana Villeda RN RN ap3 Carissa Orantes RN RN vg1 Jaime Lewis MD MD bs3 Corrections: (The following items were deleted from the chart) 14:53 14:51 PMHx: Hypothyroidism; vg1 vg1
[2022-11-11 17:07] VITALS: BP 136/90; TEMP 98.8; O2SAT 100
== END 2022-11-11 16:58 | disposition home or self-care (01) ==
LOC: ER 14:32
DX: S00.03XA Contusion of scalp, initial encounter (principal); S50.311A Abrasion of right elbow, initial encounter; M54.6 Pain in thoracic spine; I10 Essential (primary) hypertension; Z79.82 Long term (current) use of aspirin
CPT/HCPCS: 70450; 72070; 99284

== ENCOUNTER 2023-01-21 07:37 | Observation (INO) | payer OTHER ==
--- OUTSIDE RECORDS SUMMARY | 2023-01-21 07:42 | XMS REPORT | Continuity of Care Document ---
:1955 Author Organization [facility] t Address [address] [facility] [address] [place] [id number] Care Team Providers Name Role Phone Ailyn Pinzon Primary Care Physician Long Garrison Attending Clinician Unavailable Payers Payer Name Policy Type Policy Effective Date Expiration Date Sour ce Number 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) [facility] [id number] Osteoarthr Problem Co mmon itis of Spirit multiple - CHI joints, [facility] osteoarthr Center itis type [id number] Acquired Problem Comm on hypothyroi Spirit dism - CHI [facility] [id number] Mixed Problem Common hyperlipid Spirit emia - CHI [facility] [id number] 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 is without [facility] pathologic Medica l al Center fracture [id number] Noncomplia Problem Co mmon nce with [facility] dietary [facility] restrictio [facility] [id number] Hypocalcem Problem Comm on ia [facility] [id number] Pruritic Problem Comm on dermatitis [facility] [id number] Dermatitis Problem Co mmon [facility] Allergies, Adverse Reactions, Alerts This patient has no known allergies or adverse reactions. Social History Social Habit Start Date Stop Date Quantity Comments Source History of Common Spirit - Tobacco Use [facility] Alcohol intake 2016-01-20 2016-01-20 [facility] 00:00:00 00:00:00 non-drinker of Medical Ce nter alcohol (finding) Sex Ass[birth year] At [birth year] [facility] 00:00:00 00:00:00 [facility] Smoking Status Start Date Stop Date Source Never Smoker [facility] Medications Ordered Filled Start Stop Current Ordering [...] 1{table QD Famotidine 10 MG 10 MG -02 t} 10 MG 00:00: 00 Kenalog Kenalog 2020-07 No 40mg Common (Triamcinol (Triamcinol 0-19 S pirit one) one) 00:00: - CHI 00 [facility] Kenalog Kenalog 2020-07 No 40mg Common (Triamcinol (Triamcinol 0-19 S pirit one) one) 00:00: - CHI 00 [facility] Kenalog Kenalog 2020-07 No 40mg Common (Triamcinol (Triamcinol 0-19 S pirit one) one) 00:00: - CHI 00 [facility] Kenalog Kenalog 2020- No 40mg Common (Triamcinol (Triamcinol 0-19 S pirit one) one) 00:00: - CHI 00 [facility] Triamcinolo Triamcinolo 2020-0 No 1{appli BID Triamcinol [...] 20 MG 09:01: daily. Medical tablet 09 [place] olmesartan- Yes 1{tbl} QD Take [address] hydrochloro 7-14 tablet by Jeffery es thiazide 09:01: mouth Medical (BENICAR 09 daily. [place] HCT) 40-25 mg per tablet cholecalcif Yes 1000U QD Take 1,[address] tavo, 7-14 Units by DP7 Digital vitamin D3, 09:01: mouth Medic al 1,000 unit 09 daily. [place] capsule rosuvastati Yes 20mg QD Take [address] n (CRESTOR) 7-14 by mouth Luke s 20 MG 09:01: daily. Medical tablet 09 [place] olmesartan Yes 1{tbl} QD Take [address] hydrochloro 7-14 tablet by Jeffery es thiazide 09:01: mouth Medical (BENICAR 09 daily. [place] HCT) 40-25 mg per tablet cholecalcif Yes 1000U QD Take 1,[address] tavo, 7-14 Units by DP7 Digital vitamin D3, 09:01: mouth Medic al 1,000 unit 09 daily. [place] capsule levothyroxi Yes 88ug Take [address] ne 7-14 mcg by DP7 Digital (SYNTHROID, 09:01: mouth Medic al LEVOTHROID) 09 Every Center 88 MCG morning on tablet an empty stomach. levothyroxi Yes 88ug Take [address] ne 7-14 mcg by DP7 Digital (SYNTHROID, 09:01: mouth Medic al LEVOTHROID) 09 Every Center 88 MCG morning on tablet an empty stomach. Rosuvastati Rosuvastati Yes Long 1 tablet Common n Calcium n Calcium [facility]ir it [facility] Meloxicam Meloxicam Yes Long 1 tablet Common [facility] as needed [facility] Amlodipine Amlodipine Yes Long 1 tablet Common Besylate Besylate [facility] Olmesartan Olmesartan Yes Long 1 tablet Common Medoxomil-H Medoxomil-H [facility] CTZ CTZ [facility] Alendronate Alendronate Yes Long 1 tablet Common Sodium Sodium Garrison 30 minutes Spir it before the - CHI first [facility] or [place] medicine of the day with plain water Levothyroxi Levothyroxi Yes Long 1 tablet Common ne Sodium ne Sodium Garrison in the Sp hailey morning on - CHI an empty stomach [facility] Vitamin D3 Vitamin D3 Yes Long 2 capsules Common [facility] Spirit - CHI [facility] Olmesartan Olmesartan No 1{table QD Olmesartan Medoxomil-H [...] Spirit dose syringe dose syringe 09:59:00 - [facility] FluAD FluAD 2021-05-03 Completed [facility] 09:56:00 [facility] FluAD FluAD 2021-05-03 Completed [facility] 09:56:00 [facility] FluAD FluAD 2021-05-03 Completed [facility] 09:56:00 - [facility] FluAD FluAD 2021-05-03 Completed [facility] 09:56:00 - [facility] FluAD FluAD 2021-05-03 Completed [facility] 09:56:00 - [facility] FluAD FluAD 2021-05-03 Completed [facility] 09:56:00 [facility] FluAD FluAD 2021-05-03 Completed [facility] 09:56:00 [facility] FluAD FluAD 2021-05-03 Completed [facility] 09:56:00 [facility] FluAD FluAD 2021-05-03 Completed [facility] 09:56:00 - [facility] FluAD FluAD 2021-05-03 Completed [facility] 09:56:00 [facility] FluAD FluAD 2021-05-03 Completed [facility] 09:56:00 [facility] Kenalog Kenalog 2021-04-27 Completed [facility] (Triamcinolone) (Triamcinolone) 09:22:00 [facility] Kenalog Kenalog 2021-04-27 Completed [facility] (Triamcinolone) (Triamcinolone) 09:22:00 [facility] Vital Signs Vital Name Observation Time Observation Value Comments Source height 2022-05-12 09:40:00 62.25 [in_i] Common S [facility] weight 2022-05-12 09:40:00 167.3 [lb_av] [facility] temperature 2022-05-12 09:40:00 97.7 [degF] Common S [facility] bmi 2022-05-12 09:40:00 30.35 kg/m2 Common S [facility] oximetry 2022-05-12 09:40:00 99 % Common S [facility] respiratory rate 2022-05-12 09:40:00 18 /min Comm on [facility] blood pressure 2022-05-12 09:40:00 138 mm[Hg] Common [facility] - systolic [facility] blood pressure 2022-05-12 09:40:00 64 mm[Hg] Common [facility] - diastolic [facility] height 2022-02-09 10:10:00 62.25 [in_i] Common [facility] weight 2022-02-09 10:10:00 163.1 [lb_av] [facility] temperature 2022-02-09 10:10:00 97.2 [degF] [facility] bmi 2022-02-09 10:10:00 29.59 kg/m2 Common S [facility] oximetry 2022-02-09 10:10:00 99 % Common S [facility] respiratory rate 2022-02-09 10:10:00 18 /min Comm on [facility] blood pressure 2022-02-09 10:10:00 140 mm[Hg] Common [facility] - systolic [facility] blood pressure 2022-02-09 10:10:00 76 mm[Hg] Common [facility] - diastolic [facility] height 2021-11-10 10:40:00 64 [in_i] Common S [facility] weight 2021-11-10 10:40:00 170.4 [lb_av] Common [facility] temperature 2021-11-10 10:40:00 97.9 [degF] Common [facility] bmi 2021-11-10 10:40:00 29.25 kg/m2 [facility] oximetry 2021-11-10 10:40:00 100 % Common [facility] respiratory rate 2021-11-10 10:40:00 18 /min Comm on [facility] blood pressure 2021-11-10 10:40:00 137 mm[Hg] Common [facility] - systolic [facility] blood pressure 2021-11-10 10:40:00 76 mm[Hg] Common [facility] - diastolic [facility] height 2021-08-05 09:30:00 64 [in_i] Common [facility] weight 2021-08-05 09:30:00 172.2 [lb_av] [facility] temperature 2021-08-05 09:30:00 97.0 [degF] Common [facility] bmi 2021-08-05 09:30:00 29.55 kg/m2 [facility] oximetry 2021-08-05 09:30:00 90 % [facility] respiratory rate 2021-08-05 09:30:00 17 /min Comm on [facility] blood pressure 2021-08-05 09:30:00 136 mm[Hg] Common [facility] - systolic [facility] blood pressure 2021-08-05 09:30:00 83 mm[Hg] Common [facility] - diastolic [facility] height 2021-08-05 10:00:00 64 [in_i] [facility] weight 2021-08-05 10:00:00 172.2 [lb_av] [facility] temperature 2021-08-05 10:00:00 97.0 [degF] Common S pirit [facility] bmi 2021-08-05 10:00:00 29.55 kg/m2 Common S [facility] oximetry 2021-08-05 10:00:00 90 % Common S [facility] respiratory rate 2021-08-05 10:00:00 17 /min Comm on [facility] blood pressure 2021-08-05 10:00:00 136 mm[Hg] Common Spirit - systolic [facility] blood pressure 2021-08-05 10:00:00 83 mm[Hg] Common [facility] - diastolic [facility] height 2021-06-10 09:20:00 64 [in_i] Common [facility] weight 2021-06-10 09:20:00 173.3 [lb_av] [facility] temperature 2021-06-10 09:20:00 98.1 [degF] Common [facility] bmi 2021-06-10 09:20:00 29.74 kg/m2 Common S [facility] oximetry 2021-06-10 09:20:00 93 % Common [facility] respiratory rate 2021-06-10 09:20:00 17 /min Comm on [facility] blood pressure 2021-06-10 09:20:00 136 mm[Hg] Common Spirit - systolic [facility] blood pressure 2021-06-10 09:20:00 84 mm[Hg] Common [facility] - diastolic [facility] respiratory rate 2021-04-27 09:30:00 19 /min Comm on [facility] blood pressure 2021-04-27 09:30:00 132 mm[Hg] Common [facility] - systolic [facility] blood pressure 2021-04-27 09:30:00 70 mm[Hg] Common Spirit - diastolic [facility] height 2021-04-27 09:30:00 64 [in_i] Common S [facility] weight 2021-04-27 09:30:00 179.6 [lb_av] Common [facility] temperature 2021-04-27 09:30:00 97.3 [degF] Common [facility] bmi 2021-04-27 09:30:00 30.82 kg/m2 Common [facility] oximetry 2021-04-27 09:30:00 99 % Common [facility] Procedures This patient has no known procedures. Encounters Start End Encounter Admission Attending Care Care Encounter Source Date/Time Date/Time Type Type Clinicians Facility Department ID 2022-06-23 Outpatient Garrison, STLMLC STLMLC [id number] Common 08:20:01 Long [facility] 2022-05-10 Outpatient Garrison, STLMLC STLMLC [id number] Common 13:18:00 Long [facility] 2021-11-08 Outpatient Garrison, STLMLC STLMLC [id number] Common 16:17:01 Long [facility] 2021-08-05 Outpatient Garrison, STLMLC STLMLC [id number] Common 09:36:02 Long [facility] 2021-08-04 Outpatient Garrison, STLMLC STLMLC [id number] Common 14:39:55 Long [facility] 2021-08-04 Outpatient Garrison, STLMLC STLMLC [id number] Common 14:01:37 Long [id number] [facility] 2021-08-04 Outpatient Garrison, STLMLC STLMLC [id number] Common 11:17:25 Long [address] [facility] 2021-08-04 Outpatient Garrison, STLMLC STLMLC [id number] Common 11:15:39 Long [id number] [facility] 2022-05-12 2022-05-12 OFFICE STLMLC STLMLC [id number] Co mmon 00:00:00 00:00:00 VISIT [facility] LEVEL 4 [facility] 2022-02-09 2022-02-09 OFFICE STLMLC STLMLC [id number] Co mmon 00:00:00 00:00:00 VISIT Spirit ESTAB PT - CHI LEVEL 4 [facility] 2021-11-12 2021-11-12 (TEL) STLMLC STLMLC [id number] Co mmon 00:00:00 00:00:00 Spirit - CHI [facility] 2021-11-10 2021-11-10 OFFICE STLMLC STLMLC [id number] Co mmon 00:00:00 00:00:00 VISIT Spirit ESTAB PT - CHI LEVEL 4 [facility] 2021-08-05 2021-08-05 OFFICE STLMLC STLMLC [id number] Co mmon 00:00:00 00:00:00 VISIT Spirit ESTAB PT - CHI LEVEL 4 [facility] 2021-08-05 2021-08-05 SUB ANNUAL STLMLC STLMLC [id number] Common 00:00:00 00:00:00 MCR Spirit WELLNESS - CHI VISIT [facility] 2021-06-23 2021-06-23 (TEL) STLMLC STLMLC [id number] Co mmon 00:00:00 00:00:00 Spirit CHI [facility] 2021-06-21 2021-06-21 (TEL) STLMLC STLMLC [id number] Co mmon 00:00:00 00:00:00 Spirit - CHI [facility] 2021-06-10 2021-06-10 OFFICE STLMLC STLMLC [id number] Co mmon 00:00:00 00:00:00 VISIT Spirit ESTAB PT - CHI LEVEL 4 [facility] 2021-05-11 2021-05-11 (TEL) STLMLC STLMLC [id number] Co mmon 00:00:00 00:00:00 Spirit - CHI [facility] 2021-05-03 2021-05-03 (INJ) STLMLC STLMLC [id number] Co mmon 00:00:00 00:00:00 Injection Spir it - CHI [facility] 2021-04-27 2021-04-27 OFFICE STLMLC STLMLC [id number] Co mmon 00:00:00 00:00:00 VISIT Spirit ESTAB PT - CHI LEVEL 4 [facility] 2021-04-26 2021-04-26 (TEL) STLMLC STLMLC [id number] Co mmon 00:00:00 00:00:00 [facility] 2021-01-25 2021-01-25 Outpatient STLMLC STLMLC [id number] Common 00:00:00 00:00:00 [facility] 2020-12-09 2020-12-09 Outpatient STLMLC STLMLC [id number] Common 00:00:00 00:00:00 [facility] 2020-12-08 2020-12-08 Outpatient STLMLC STLMLC [id number] Common 00:00:00 00:00:00 [facility] 2020-10-23 2020-10-23 Outpatient STLMLC STLMLC [id number] Common 00:00:00 00:00:00 [facility] 2020-10-20 2020-10-20 Outpatient STLMLC STLMLC [id number] Common 00:00:00 00:00:00 [facility] 2020-09-04 2020-09-04 Outpatient STLMLC STLMLC [id number] Common 00:00:00 00:00:00 [facility] 2020-07-24 2020-07-24 Outpatient STLMLC STLMLC [id number] Common 00:00:00 00:00:00 [facility] 2020-07-24 2020-07-24 Outpatient STLMLC STLMLC [id number] Common 00:00:00 00:00:00 [facility] 2020-05-07 2020-05-07 Outpatient STLMLC STLMLC [id number] Common 00:00:00 00:00:00 [facility] 2020-02-06 2020-02-06 [facility] [id number] Common 11:00:00 11:00:00 IPS [employer] Spir [address] [facility] 2019-10-18 2019-10-18 Out[facility] [id number] Common 11:38:00 11:38:00 IPS [employer] Spir it Drive [facility] 2019-10-02 2019-10-02 Outpatient Taz Mcgheet [id number] Common 08:30:00 08:30:00 t [employer] [facility] Vint [facility] Results Test Description Test Time Test Comments Results Result Comments Source HEMOGLOBIN A1C 2022-02-09 00:00:00 Test Item Value Reference Range Interpretation Comme nts A1C (test code = 4548-4) 5.8
[2023-01-21 08:10] LABS: Absolute Lymphocytes (CBC) 1.8 K/uL (0.7-4.9); Hematocrit 38.1 % (36.0-45.0); Lymphocytes % 30.1 % (15.3-44.8); MCV 96.7 fL (80-100); MPV 9.7 fL (7.6-11.3); RBC Red Blood Cell Count 3.94 M/uL (3.86-4.86)
[2023-01-21 08:14] LABS: Protime INR 0.98
--- NOTE | 2023-01-21 08:16 | EDPHYS ---
Physician Documentation [facility] Name: Yu Joseph Age: 67 yrs Sex: Female : 1955 Arrival Date: 01/21/2023 Time: 07:37 Bed 14 Private MD: ED Physician Twin Aguirre HPI: 01/21 08:10 This 67 yrs old Female presents to ER via Ambulatory with complaints of Chest lamine Pain. 08:10 The patient or guardian reports chest pain that is located primarily in the substernal lamine area. Onset: yesterday. The pain does not radiate. Associated signs and symptoms: Pertinent positives: shortness of breath. The chest pain is described as a heaviness. Duration: The patient or guardian reports multiple episodes, with no pattern. Modifying factors: The symptoms are alleviated by nothing. the symptoms are aggravated by nothing. Severity of pain: At its worst the pain was moderate in the emergency department the pain is unchanged. The patient has experienced similar episodes in the past, a few times. Historical: - Allergies: 07:54 No Known Allergies; hb - Home Meds: 07:54 Aspirin Oral as needed [Active]; hb - PMHx: 07:54 breast cancer; Hypertensive disorder; Hypothyroidism; hb - PSHx: 07:54 mastectomy; hb - Immunization history:: Adult Immunizations up to date. - Social history:: Smoking status: Patient denies any tobacco usage or history of. - Family history:: not pertinent. ROS: 08:10 Constitutional: Negative for fever, chills, and weight loss, Eyes: Negative for injury, lamine pain, redness, and discharge, ENT: Negative for injury, pain, and discharge, Neck: Negative for injury, pain, and swelling, Respiratory: Negative for shortness of breath, cough, wheezing, and pleuritic chest pain, Abdomen/GI: Negative for abdominal pain, nausea, vomiting, diarrhea, and constipation, Back: Negative for injury and pain, : Negative for injury, bleeding, discharge, and swelling, MS/Extremity: Negative for injury and deformity, Skin: Negative for injury, rash, and discoloration, Neuro: Negative for headache, weakness, numbness, tingling, and seizure, Psych: Negative for depression, anxiety, suicide ideation, homicidal ideation, and hallucinations, Allergy/Immunology: Negative for hives, rash, and allergies, Endocrine: Negative for neck swelling, polydipsia, polyuria, polyphagia, and marked weight changes, Hematologic/Lymphatic: Negative for swollen nodes, abnormal bleeding, and unusual bruising. 08:10 Cardiovascular: Positive for chest pain. Exam: 08:10 Constitutional: This is a well developed, well nourished patient who is awake, alert, lamine and in no acute distress. Head/Face: Normocephalic, atraumatic. Eyes: Pupils equal round and reactive to light, extra-ocular motions intact. Lids and lashes normal. Conjunctiva and sclera are non-icteric and not injected. Cornea within normal limits. Periorbital areas with no swelling, redness, or edema. ENT: Nares patent. No nasal discharge, no septal abnormalities noted. Tympanic membranes are normal and external auditory canals are clear. Oropharynx with no redness, swelling, or masses, exudates, or evidence of obstruction, uvula midline. Mucous membranes moist. Neck: Trachea midline, no thyromegaly or masses palpated, and no cervical lymphadenopathy. Supple, full range of motion without nuchal rigidity, or vertebral point tenderness. No Meningismus. Chest/axilla: Normal chest wall appearance and motion. Nontender with no deformity. No lesions are appreciated. Cardiovascular: Regular rate and rhythm with a normal S1 and S2. No gallops, murmurs, or rubs. Normal PMI, no JVD. No pulse deficits. Respiratory: Lungs have equal breath sounds bilaterally, clear to auscultation and percussion. No rales, rhonchi or wheezes noted. No increased work of breathing, no retractions or nasal flaring. Abdomen/GI: Soft, non-tender, with normal bowel sounds. No distension or tympany. No guarding or rebound. No evidence of tenderness throughout. Back: No spinal tenderness. No costovertebral tenderness. Full range of motion. Female : Normal external genitalia. Skin: Warm, dry with normal turgor. Normal color with no rashes, no lesions, and no evidence of cellulitis. MS/ Extremity: Pulses equal, no cyanosis. Neurovascular intact. Full, normal range of motion. Neuro: Awake and alert, GCS 15, oriented to person, place, time, and situation. Cranial nerves II-XII grossly intact. Motor strength 5/5 in all extremities. Sensory grossly intact. Cerebellar exam normal. Normal gait. Psych: Awake, alert, with orientation to person, place and time. Behavior, mood, and affect are within normal limits. 08:10 Musculoskeletal/extremity: DVT Exam: No signs of deep vein thrombosis. no pain, no swelling, no tenderness, negative Homans' sign noted on exam, no appreciated bluish discoloration, no erythema, no increased warmth. 08:51 ECG was reviewed by the Attending Physician. lamine Vital Signs: 07:53 BP 163 / 92; Pulse 94; Resp 16; Temp 98.1; Pulse Ox 100% on R/A; Weight 71.21 kg; hb Height 5 ft. 1 in. ; Pain 10/10; 08:00 BP 158 / 86; Pulse 74; Resp 18; Pulse Ox 100% ; ko1 08:30 BP 149 / 86; Pulse 80; Resp 16; Pulse Ox 100% ; ko1 09:00 BP 152 / 77; Pulse 65; Resp 18; Pulse Ox 100% ; ko1 07:53 Body Mass Index 29.66 (71.21 kg, 154.94 cm) hb 07:53 Pain Scale: Adult hb MDM: 07:42 Patient medically screened. lamine 08:13 Differential diagnosis: abnormal EKG, acute myocardial infarction, acute pericarditis, lamine anxiety, chest wall pain, cholecystitis, Cholelithiasis hiatal hernia, peptic ulcer disease, pneumonia, pneumothorax, pulmonary embolus, stable angina, thoracic aortic disection. HEART Score: History: Moderately Suspicious (1), ECG: Non specific repolarization disturbance / LBTB / PM (1), Age: > or = 65 years (2), Risk Factors: > or = 3 Risk factors for atherosclerotic disease (2), [Hypercholesterolemia] [Hypertension] [DM] [+ Family HX] [Obesity] Troponin: < or = 1 x Normal Limit (0). The patient was given aspirin in the Emergency Department. MURTAZA Risk Score: 1 - patient's age is greater or equal to 65 years, 1 - Three or more CAD risk factors, 1- Known CAD, 1 - ASA use in past 7 days, TOTAL SCORE = 4. Data reviewed: vital signs, nurses notes, lab test result(s), EKG, radiologic studies, plain films. Consideration of Admission/Observation Escalation of care including admission/observation considered. I considered the following discharge prescriptions or medication management in the emergency department Medications were administered in the Emergency Department. See MAR. Test considered but Not performed: CT: NO CT CHEST. Historians other than the Patient: Spouse/Significant Other: WELL INFORMED. Care significantly affected by the following chronic conditions: Diabetes, Hypertension, Obesity, Cancer. 01/21 07:43 Order name: Basic Metabolic Panel; Complete Time: 09:09 [facility] 01/21 07:43 Order name: CBC with Diff; Complete Time: 08:26 [facility] 01/21 07:43 Order name: LFT's; Complete Time: 09:09 [facility] 01/21 07:43 Order name: Magnesium; Complete Time: 09:09 [facility] 01/21 07:43 Order name: NT PRO-BNP; Complete Time: 09: [facility] 01/21 07:43 Order name: PT-INR; Complete Time: 08:45 [facility] 01/21 07:43 Order name: Troponin HS; Complete Time: 09:09 [facility] 01/21 07:43 Order name: Lipase; Complete Time: 09:09 [facility] 01/21 07:43 Order name: Urinalysis w/ reflexes [facility] 01/21 08:37 Order name: Ptt, Activated; Complete Time: 09:09 ko1 01/21 12:16 Order name: Ptt, Activated ko1 01/21 12:27 Order name: Basic Metabolic Panel [facility] 01/21 12:27 Order name: Basic Metabolic Panel [facility] 01/21 12:27 Order name: CBC with Automated Diff [facility] 01/21 12:27 Order name: CBC with Automated Diff [facility] 01/21 12:27 Order name: Lipid Profile [facility] 01/21 12:27 Order name: Lipid Profile [facility] 01/21 12:27 Order name: Troponin High Sensitivity [facility] 01/21 12:27 Order name: Troponin High Sensitivity [facility] 01/21 12:27 Order name: Troponin High Sensitivity [facility] 01/21 12:27 Order name: Troponin High Sensitivity [facility] 01/21 07:43 Order name: XRAY Chest (1 view); Complete Time: 09:09 [facility] 01/21 07:43 Order name: EKG; Complete Time: 07:44 [facility] 01/21 12:27 Order name: CONS Physician Consult [facility] 01/21 12:27 Order name: Heart Healthy [facility] 01/21 07:43 Order name: Cardiac monitoring; Complete Time: 07:57 [facility] 01/21 07:43 Order name: EKG - Nurse/Tech; Complete Time: [facility] 01/21 07:43 Order name: IV Saline Lock; Complete Time: [facility] 01/21 07:43 Order name: Labs collected and sent; Complete Time: [facility] 01/21 07:43 Order name: O2 Per Protocol; Complete Time: [facility] 01/21 07:43 Order name: O2 Sat Monitoring; Complete Time: [facility] EC:51 Rate is 89 beats/min. Rhythm is regular. QRS [place] is Normal. [place] interval is normal. QRS lamine interval is normal. QT interval is normal. No Q waves. T waves are Normal. Clinical impression: NSR w/ Non-specific ST/T Changes. Interpreted by me. Reviewed by me. Administered Medications: 08:18 Drug: Aspirin PO Chewable Tablet 324 mg Route: PO; ko1 08:18 Drug: NS 0.9% IV 500 ml Route: IV; Rate: bolus; Site: left antecubital; ko1 08:18 Drug: morphine IVP or IV 2 mg Route: IVP; Infused Over: 4 mins; Site: left antecubital; ko1 08:18 Drug: Ondansetron IVP 4 mg Route: IVP; Site: left antecubital; ko1 08:32 Drug: Metoprolol PO 50 mg Route: PO; ko1 08:36 Drug: Metoprolol IVP 2.5 mg Route: IVP; Site: left antecubital; ko1 08:36 Drug: Famotidine IVP 20 mg Route: IVP; Site: left antecubital; ko1 08:41 Drug: morphine IVP or IV 2 mg Route: IVP; Infused Over: 4 mins; Site: left antecubital; ko1 09:10 Drug: Heparin (PR-Bolus No thrombolytic) - HEParin IVP 60 units/kg {Co-Signature: ap3 ko1 (Archana Villeda RN).} Route: IVP; Site: left antecubital; 09:10 Drug: Heparin (PR Drip) - (D5W IV 500 ml, [place] [address] units) 12 units/kg/hr ko1 {Co-Signature: ap3 (Archana Villeda RN).} Route: IV; Rate: calculated rate; Site: left antecubital; 09:16 Drug: Potassium PO Effervescent Tablet 25 mEq Route: PO; ko1 11:09 Drug: Metoprolol IVP 2.5 mg Route: IVP; Site: left antecubital; ko1 Disposition Summary: 01/21/23 08:48 Hospitalization Ordered Hospitalization Status: Observation lamine Location: Telemetry/MedSurg (observation) lamine Condition: Fair(01/21/23 08:48) lamine Problem: new(01/21/23 08:48) lamine Symptoms: have improved(01/21/23 08:48) lamine Bed/Room Type: Standard lamine Provider: Liudmila Zamorano(01/21/23 08:55) lamine Room Assignment: [facility](01/21/23 12:31) dw Diagnosis - Angina pectoris, unspecified(01/21/23 08:48) lamine - Chest pain, unspecified(01/21/23 08:48) lamine - Essential (primary) hypertension(01/21/23 08:48) lamine - Unspecified kidney failure lamine - Hypokalemia lamine Forms: - Medication Reconciliation Form lamine - SBAR form lamine Signatures: Dispatcher [employer] EDNicole Morelos RN RN dw Anderson, Corey, MD MD cha Baxter, Heather, RN RN hb Oliver, Kathy, RN RN ko1 Archana Villeda RN ap3 Corrections: (The following items were deleted from the chart) 08:47 08:16 TO [facility] lamine lamine 08:47 08:16 [facility] lamine lamine 08:47 08:16 Higher level of care lamine lamine 08:47 08:16 Stable lamine lamine 08:47 08:16 new lamine lamine 08:47 08:16 have improved lamine lamine 08:47 08:16 Chest pain, unspecified lamine lamine 08:47 08:16 Essential (primary) hypertension lamine lamine 08:47 08:16 Angina pectoris, unspecified lamine lamine 08:55 08:48 Rommel Nunez lamine lamine 12:31 08:48 lamine dw
--- NOTE | 2023-01-21 08:16 | ER ---
Nurse's Notes [facility] Name: Yu Joseph Age: 67 yrs Sex: Female : 1955 Arrival Date: 01/21/2023 Time: 07:37 Bed 14 Private MD: Diagnosis: Angina pectoris, unspecified;Chest pain, unspecified;Essential (primary) hypertension;Unspecified kidney failure;Hypokalemia Presentation: 01/21 07:53 Chief complaint: Intermittent substernal chest pain x 3 days. Pain is worse with hb movement and deep breathing. Coronavirus screen: At this time, the client does not indicate any symptoms associated with coronavirus-19. Ebola Screen: No symptoms or risks identified at this time. Initial Sepsis Screen: Does the patient meet any 2 criteria? No. Patient's initial sepsis screen is negative. Does the patient have a suspected source of infection? No. Patient's initial sepsis screen is negative. Risk Assessment: Do you want to hurt yourself or someone else? Patient reports no desire to harm self or others. Onset of symptoms was January 18, 2023. 07:53 Method Of Arrival: Ambulatory hb 07:53 Acuity: OCTAVIO 3 hb Historical: - Allergies: 07:54 No Known Allergies; hb - Home Meds: 07:54 Aspirin Oral as needed [Active]; hb - PMHx: 07:54 breast cancer; Hypertensive disorder; Hypothyroidism; hb - PSHx: 07:54 mastectomy; hb - Immunization history:: Adult Immunizations up to date. - Social history:: Smoking status: Patient denies any tobacco usage or history of. - Family history:: not pertinent. Screenin:55 [facility] ED Fall Risk Assessment (Adult) History of falling in the last 3 months, ko1 including since admission No falls in past 3 months (0 pts) Confusion or Disorientation No (0 pts) Intoxicated or Sedated No (0 pts) Impaired Gait No (0 pts) Mobility Assist Device Used No (0 pt) Altered Elimination No (0 pt) Score/Fall Risk Level 0 - 2 = Low Risk Oriented to surroundings, Maintained a safe environment, Educated pt \T\ family on fall prevention, incl call for assistance when getting out of bed, Assessed \T\ reinforced patient's understanding of fall precautions, Provided non-skid footwear, Hourly rounding (assess needs \T\ fall precautionary measures) done, Used ambulatory aids as needed (educated on \T\ assisted with), Used gait belt as appropriate. Abuse screen: Denies threats or abuse. Denies injuries from another. Nutritional screening: No deficits noted. Tuberculosis screening: No symptoms or risk factors identified. Assessment: 07:55 General: Appears distressed, uncomfortable, Behavior is cooperative, appropriate for ko1 age, anxious, crying. Pain: Complains of pain in chest Pain does not radiate. Pain currently is 10 out of 10 on a pain scale. Quality of pain is described as burning, Pain began 2-3 days ago. Neuro: No deficits noted. Cardiovascular: Reports chest pain. Respiratory: No deficits noted. GI: No deficits noted. : No deficits noted. EENT: No deficits noted. Derm: No deficits noted. Musculoskeletal: No deficits noted. Vital Signs: 07:53 BP 163 / 92; Pulse 94; Resp 16; Temp 98.1; Pulse Ox 100% on R/A; Weight 71.21 kg; hb Height 5 ft. 1 in. ; Pain 10/10; 08:00 BP 158 / 86; Pulse 74; Resp 18; Pulse Ox 100% ; ko1 08:30 BP 149 / 86; Pulse 80; Resp 16; Pulse Ox 100% ; ko1 09:00 BP 152 / 77; Pulse 65; Resp 18; Pulse Ox 100% ; ko1 07:53 Body Mass Index 29.66 (71.21 kg, 154.94 cm) hb 07:53 Pain Scale: Adult hb ED Course: 07:38 Patient arrived in ED. ts1 07:39 Irma Myers RN is Primary Nurse. ko1 07:42 Twin Aguirre MD is Attending Physician. lamine 07:54 Triage completed. hb 07:55 Arm band placed on. hb 07:55 Patient has correct armband on for positive identification. Bed in low position. Call ko1 light in reach. Side rails up X2. Provided Education on: tests. Client placed on continuous cardiac and pulse oximetry monitoring. NIBP monitoring applied. surveillance system monitor on. Door closed. Noise minimized. Lights dimmed. Warm blanket given. 07:55 Inserted saline lock: 20 gauge in left antecubital area, using aseptic technique. Blood ko1 collected. Patient maintains SpO2 saturation greater than 95% on room air. 07:57 Basic Metabolic Panel Sent. ko1 07:57 CBC with Diff Sent. ko1 07:57 LFT's Sent. ko1 07:58 Magnesium Sent. ko1 07:58 NT PRO-BNP Sent. ko1 07:58 PT-INR Sent. ko1 07:58 Troponin HS Sent. ko1 08:36 XRAY Chest (1 view) In Process Unspecified. EDMS 08:41 Ptt, Activated Sent. ko1 08:47 Rommel Nunez is Hospitalizing Provider. lamine 08:55 Liudmila Zamorano MD is Hospitalizing Provider. lamine 09:09 Urinalysis w/ reflexes Sent. ko1 13:20 No provider procedures requiring assistance completed. Patient admitted, IV remains in ko1 place. Administered Medications: 08:18 Drug: Aspirin PO Chewable Tablet 324 mg Route: PO; ko1 08:18 Drug: NS 0.9% IV 500 ml Route: IV; Rate: bolus; Site: left antecubital; ko1 08:18 Drug: morphine IVP or IV 2 mg Route: IVP; Infused Over: 4 mins; Site: left antecubital; ko1 08:18 Drug: Ondansetron IVP 4 mg Route: IVP; Site: left antecubital; ko1 08:32 Drug: Metoprolol PO 50 mg Route: PO; ko1 08:36 Drug: Metoprolol IVP 2.5 mg Route: IVP; Site: left antecubital; ko1 08:36 Drug: Famotidine IVP 20 mg Route: IVP; Site: left antecubital; ko1 08:41 Drug: morphine IVP or IV 2 mg Route: IVP; Infused Over: 4 mins; Site: left antecubital; ko1 09:10 Drug: Heparin (CT-Bolus No thrombolytic) - HEParin IVP 60 units/kg {Co-Signature: ap3 ko1 (Archana Villeda RN).} Route: IVP; Site: left antecubital; 09:10 Drug: Heparin (CT Drip) - (D5W IV 500 ml, [place] [address] units) 12 units/kg/hr ko1 {Co-Signature: ap3 (Archana Villeda RN).} Route: IV; Rate: calculated rate; Site: left antecubital; 09:16 Drug: Potassium PO Effervescent Tablet 25 mEq Route: PO; ko1 11:09 Drug: Metoprolol IVP 2.5 mg Route: IVP; Site: left antecubital; ko1 Medication: 13:21 VIS not applicable for this client. ko1 Outcome: 08:16 ER care complete, transfer ordered by . lamine 08:48 Decision to Hospitalize by Provider. lamine 13:20 Admitted to Tele accompanied by tech, via wheelchair, room 406, with chart, Report ko1 called to Brittaney 13:20 Condition: stable 13:20 Instructed on the need for admit. 13:22 Patient left the ED. ko1 Signatures: Dispatcher [employer] EDMS Twin Aguirre MD MD cha Baxter, Heather, RN RN Irma Crook RN RN ko1 Noreen Chavez PAS PAS ts1 Archana Villeda RN ap3
[2023-01-21] MEDS ORDERED: ASPIRIN 81 MG CHEWABLE TABLET ONE (08:17)
[2023-01-21] MEDS ORDERED: HEPARIN 5000 UNIT/ML 1 ML VIAL ONE (08:17)
[2023-01-21] MEDS ORDERED: ONDANSETRON 4 MG/2 ML VIAL ONE (08:18)
[2023-01-21] MEDS ORDERED: MORPHINE 2 MG/ML SYR ONE ×2 (08:18→08:49)
[2023-01-21] MEDS ORDERED: NA CHLORIDE 0.9% 500 ML ONE (08:19)
[2023-01-21] MEDS ORDERED: HEPARIN/D5W 25,000 UNIT/500 ML BAG IV ONE (08:19)
[2023-01-21] MEDS ORDERED: METOPROLOL TAR 50 MG TAB ONE (08:38)
[2023-01-21] MEDS ORDERED: FAMOTIDINE 20 MG/2 ML VIAL IV ONE (08:39)
[2023-01-21] MEDS ORDERED: METOPROLOL TARTRATE 5 MG/5 ML INJ IV ONE (08:39)
[2023-01-21 08:50] LABS: Albumin 3.8 g/dL (3.4-5.0); Bilirubin Direct 0.1 mg/dL (0-0.2); Bilirubin Indirect, Calculated 0.4 mg/dL (0.2-0.8); Bilirubin Total 0.5 mg/dL (0.2-1.0); Magnesium 2.4 mg/dL (1.6-2.4); Potassium 3.2 mEq/L (3.5-5.1); Protein, Total 8.3 g/dL (6.4-8.2); Troponin High Sensitivity 11.3 pg/mL (<58.9)
--- NOTE | 2023-01-21 08:50 | RAD REPORT ---
EXAM DESCRIPTION: RAD - Chest Single View - 01/21/2023 8:34 am CLINICAL HISTORY: CHEST PAIN Chest pain. COMPARISON: CHEST PA AND LAT 2 VIEW dated 06/03/2014 FINDINGS: Portable technique limits examination quality. The lungs are grossly clear. The heart is normal in size. No displaced fractures.Left-sided surgical clips noted. IMPRESSION: No acute intrathoracic process suspected.
[2023-01-21 09:17] LABS: Specific Gravity 1.008 (1.005-1.030); Urine Bilirubin NEGATIVE (Negative); Urine Blood Negative (Negative); Urine Clarity Clear (Clear); Urine Color Colorless (Yellow); Urine Glucose NEGATIVE (Negative); Urine Protein NEGATIVE (Negative); Urine Urobilinogen Normal (Normal); Urine pH 7.5 (5.0-7.0)
[2023-01-21] MEDS ORDERED: POTASSIUM 25 MEQ EFFERV TAB ONE (09:24)
[2023-01-21] MEDS ORDERED: ACETAMINOPHEN 500 MG TAB PO PRN (12:22)
[2023-01-21 13:28] VITALS: O2SAT 100
[2023-01-21 14:13] VITALS: BMI 29.6
[2023-01-21] MEDS ORDERED: ONDANSETRON 4 MG/2 ML VIAL IV PRN (17:53)
[2023-01-21] MEDS: METOPROLOL TAR 50 MG TAB PO SCH (21:13)
[2023-01-22 07:48] LABS: Absolute Lymphocytes (CBC) 1.5 K/uL (0.7-4.9); Hematocrit 38.3 % (36.0-45.0); Lymphocytes % 22.6 % (15.3-44.8); MCV 97.2 fL (80-100); MPV 9.4 fL (7.6-11.3); RBC Red Blood Cell Count 3.94 M/uL (3.86-4.86)
[2023-01-22 08:07] LABS: Potassium 3.5 mEq/L (3.5-5.1)
[2023-01-22] MEDS: METOPROLOL TAR 50 MG TAB PO SCH (08:10)
[2023-01-22 08:12] LABS: Troponin High Sensitivity 12.1 pg/mL (<58.9)
[2023-01-22] MEDS ORDERED: ENOXAPARIN 40 MG/0.4 ML SQ SCH (09:00)
[2023-01-22] MEDS ORDERED: ASPIRIN EC 81 MG TAB PO SCH (09:00)
[2023-01-22] MEDS ORDERED: MELOXICAM 7.5 MG PO PRN (11:23)
--- NOTE | 2023-01-22 11:23 | P.HP ---
Certification for Inpatient Patient admitted to: Observation With expected LOS: <2 Midnights Patient will require the following post-hospital care: None Practitioner: I am a practitioner with admitting privileges, knowledge of patient current condition, hospital course, and medical plan of care. Services: Services provided to patient in accordance with Admission requirements found in Title 42 Section 412.3 of the Code of Federal Regulations Patient History Date of Service: 01/21/23 Reason for admission: Chest pain rule out acute coronary syndrome History of Present Illness: Patient is a 67-year-old female came to the hospital with chest discomfort. Pain was mainly the sternal region. Patient states her pain was reproducible. She came to the hospital for further evaluation. In the emergency room, patient was treated with pain medication. She had taken an aspirin at home. Her chest pain resolved. She is currently feeling better. Her troponin and EKG are unremarkable. She was admitted for observation for her chest pain. She had a stress test done in the past that was unremarkable. No other cardiac history except for her brother who had some heart disease. She does not smoke. She did not have any nausea or vomiting or diaphoresis nor does she have shortness of breath. Allergies No Known Allergies Allergy (Verified 01/21/23 13:53) Home Medications: Amlodipine [Norvasc] 5 mg PO DAILY 01/21/23 Levothyroxine [Synthroid] 75 mcg PO [id number] 01/21/23 Meloxicam [Mobic] 7.5 mg PO DAILYPRN PRN 01/21/23 Olmesartan/Hydrochlorothiazide [Olmesartan-Hctz 40-25 mg Tab] 1 tab PO DAILY 01/21/23 Rosuvastatin Calcium 20 mg PO BEDTIME 01/21/23 - Past Medical/Surgical History Has patient received pneumonia vaccine in the past: No Diabetic: Yes -: HTN -: Hypothyroidism -: HLD -: Prediabetes- No meds taking -: Breast cancer- R -: Wesley Masetectomy with Right side Lymph node removal - Family History Brother Medical History: Diabetes Mother Medical History: Hypertension - Social History Smoking Status: Never smoker Alcohol use: No CD- Drugs: No Caffeine use: Yes Place of Residence: Home Review of Systems 10-point ROS is otherwise unremarkable Physical Examination - Vital Signs Temperature: 97.3 F Blood Pressure: 126/70 Pulse: 62 Respirations: 16 Pulse Ox (%): 98 - Physical Exam General: Alert, In no apparent distress, Oriented x3 HEENT: Atraumatic, PERRLA, Mucous membr. moist/pink, EOMI, Sclerae nonicteric Neck: Supple, 2+ carotid pulse no bruit, No LAD, Without JVD or thyroid abnormality Respiratory: Clear to auscultation bilaterally, Normal air movement Cardiovascular: Regular rate/rhythm, Normal S1 S2, No murmurs Gastrointestinal: Normal bowel sounds, Hypoactive, Soft and benign, Non- distended, No tenderness Musculoskeletal: No clubbing, No swelling, Tenderness (Costochondritis) Integumentary: No rashes Neurological: Normal gait, Normal speech, Normal strength at 5/5 x4 extr, Normal tone, Sensation intact, Cranial nerves 3-12 intact, Normal affect Lymphatics: No axilla or inguinal lymphadenopathy Assessment & Plan - Problems (Diagnosis) (1) Costochondritis, acute Current Visit: Yes Status: Acute (2) Chest pain, rule out acute myocardial infarction Current Visit: Yes Status: Acute (3) HTN (hypertension) Current Visit: Yes Status: Acute (4) Dyslipidemia Current Visit: Yes Status: Acute (5) History of breast cancer Current Visit: Yes Status: Acute - Plan -High-sensitivity troponin -Cardiology consultation -Further cardiac work-up per cardiology recommendation -Anti-inflammatory -Work-up for other etiologies of cardiac chest pain if troponins remain negative -Lipid profile -Semiconductor Development Technician regarding modifying risk for cardiac disease Discharge Plan: Home Plan to discharge in: 24 Hours - Advance Directives Does patient have a Living Will: No Does patient have a Durable POA for Healthcare: No - Code Status/Comfort Care Code Status Assessed: Yes Code Status: Full Code Critical Care: No Time Spent Managing PTS Care (In Minutes): 45
[2023-01-22 12:07] VITALS: BP 118/59; TEMP 98
[2023-01-22] MEDS ORDERED: ROSUVASTATIN 10 MG TAB PO SCH (21:00)
[2023-01-23] MEDS ORDERED: LEVOTHYROXINE SOD 0.075 MG TAB PO SCH (06:00)
[2023-01-23] MEDS ORDERED: HOME MED 1 EA UNK (Olmesartan/Hydrochlorothiazide [Olmesartan-Hctz 40-25 Mg Tab] Tablet) PO SCH (09:00)
[2023-01-23] MEDS ORDERED: AMLODIPINE 5 MG TAB PO SCH (09:00)
--- NOTE | 2023-01-23 11:49 | EKG ---
Test Date: 2023-01-21 Test Time: 07:46:58 Loftsman/Woman: CATHERINE MEASUREMENT RESULTS: Intervals: Rate: 89 MO: 140 QRSD: 68 QT: 398 QTc: 484 Lawrence: P: 49 MO: 140 QRS: 42 T: 71 INTERPRETIVE STATEMENTS: Normal sinus rhythm Nonspecific ST and T wave abnormality Abnormal ECG Compared to ECG 08/17/2004 11:33:00 ST (T wave) deviation now present Electronically Signed On 01-23-23 11:45:50 CDT by Hever Snow
== END 2023-01-22 14:05 | disposition home or self-care (01) ==
LOC: ER 07:37 → ERHOLD 12:23 → 4TH 13:00
PROVIDERS: ADMIT Hospitalist; ATTEND Hospitalist
DX: M94.0 Chondrocostal junction syndrome [Tietze] (principal); R07.9 Chest pain, unspecified; I10 Essential (primary) hypertension; E78.5 Hyperlipidemia, unspecified; Z85.3 Personal history of malignant neoplasm of breast
CPT/HCPCS: 85025 ×2; 80048 ×2; 36415 ×2; 83735; 85610; 80061; 80076; 85730 ×2; 81003; 84484 ×4; 83690; 83880; 71045; 96375; 96374; 99285; J1644; J1650; J2270 ×2; J2405; J7040; 93005

== ENCOUNTER 2024-05-08 15:22 | Inpatient (IN) | payer OTHER ==
--- NOTE | 2024-05-08 17:12 | RAD REPORT ---
EXAMINATION: ONE VIEW CHEST XR CLINICAL INDICATION: DYSPNEA TECHNIQUE: Frontal chest projection is submitted. Examination is limited by patient positioning and t echnique. COMPARISON: 01/21/2023 FINDINGS: Elevated left hemidiaphragm is noted. Postsurgical clips are seen inferior left thoracic cage. The he art is normal in size. Sternotomy wires present. IMPRESSION: Elevated left hemidiaphragm noted.
--- NOTE | 2024-05-08 17:14 | RAD REPORT ---
EXAMINATION: US RIGHT LOWER EXTREMITY VENOUS DOPPLER CLINICAL INDICATION: SWELLING RIGHT TECHNIQUE: Complete bilateral duplex sonography of the RIGHT lower extremity veins was performed. The examination included compression for vein patency, color Doppler imaging and flow augmentation in response to distal compression of the distal external iliac, common femoral, femoral, popliteal, tibi al, and great and small saphenous veins. COMPARISON: No prior exam. FINDINGS: Duplex sonography testing of the veins of the RIGHT lower extremity was performed. Color flow imaging shows all veins to be compressible with [id number] color filling. Pulsatile and phasic flow is present within all lower extremity deep and superficial veins examined. IMPRESSION: There is no deep vein or superficial vein thrombosis.
[2024-05-08 17:47] LABS: Absolute Eosinophils 0.2 K/uL (0-0.5); Absolute Lymphocytes (CBC) 1.1 K/uL (0.7-4.9); Absolute Monocytes 0.4 K/uL (0.1-1.3); Absolute Neutrophil 5.1 K/uL (1.8-8.0); Basophils % 0.7 % (0-1.3); Eosinophils % 2.4 % (0-4.4); Hematocrit 38.1 % (36.0-45.0); Hemoglobin 12.5 g/dL (12.0-15.0); Lymphocytes % 16.6 % (15.3-44.8); MCH 29.3 pg (27.0-35.0); MCHC 32.9 g/dL (32.0-36.0); MCV 89.2 fL (80-100); MPV 11.1 fL (7.6-11.3); Monocytes % 6.3 % (3.3-12.3); Platelets 153 thou/uL (152-406); RBC Red Blood Cell Count 4.28 M/uL (3.86-4.86)
[2024-05-08 17:57] LABS: PT Prothrombin Time 13.7 SECONDS (9.4-12.5); PTT, Activated Partial Thromb 21.2 SECONDS (24.3-36.9); Protime INR 1.23
[2024-05-08 18:46] LABS: Albumin 3.1 g/dL (3.4-5.0); Albumin/Globulin Ratio 0.7 (1.1-1.8); Bilirubin Total 0.5 mg/dL (0.2-1.0); Globulin 4.3 g/dL (2.3-3.5); Protein, Total 7.4 g/dL (6.4-8.2)
[2024-05-08 19:08] LABS: Troponin High Sensitivity 71.3 pg/mL (<58.9)
--- NOTE | 2024-05-08 20:03 | RAD REPORT ---
EXAMINATION: CT CHEST WITHOUT CONTRAST CLINICAL INDICATION: DYSPNEA TECHNIQUE: Routine CT scan of the chest without intravenous contrast. One or more of the following do se reduction techniques were used: Automated exposure control, adjustment of the mA and/or kV according to patient size, and/or iterative reconstruction. Unless otherwise specified, incidental fi ndings do not require dedicated imaging follow-up. COMPARISON: No prior exam. FINDINGS: LOWER NECK: Visualized thyroid gland and soft tissues are normal. LUNGS: 7 mm noncalcified nodule lateral right middle lobe. There is evidence of significant left basi lar scarring with small amount of left pleural fluid. PLEURA: Small left pleural effusion. MEDIASTINUM AND LYMPH NODES: No mediastinal mass or fluid collection. Normal size mediastinal, hilar, and axillary lymph nodes. OSSEOUS STRUCTURES AND CHEST WALL: Sternotomy. UPPER ABDOMEN: No significant abnormalities. IMPRESSION: Left basilar pulmonary scarring with atelectasis suspected. Small left pleural effusion. 7 mm noncalcified nodule lateral right middle lobe. 2017 Fleischner Society Recommendations for Lung Nodule(s): Follow-Up based on size (average of long- and short-axis diameters). Use most suspicious nodule for followup. Single solid lung nodule 6-8 mm: In a low-risk patient, recommend a non-contrast chest CT at 6-12 mon ths, then consider an additional non-contrast chest CT at 18-24 months. In a high-risk patient, recommend a non-contrast chest CT at 6-12 months, then another non-contrast chest CT at 18-24 months. These guidelines do not apply to patients younger than 35 years, immunocompromised patients, and alicia ents with cancer. F/u in patients with significant comorbidities as clinically warranted. For lung cancer screening, adhere to Lung-RADS guidelines. Reference: Radiology. 2017 Jin; 284(1):228-243 Examination limited by lack of IV contrast.
--- NOTE | 2024-05-08 21:05 | ER ---
Nurse's Notes [facility] Name: Yu Joseph Age: 68 yrs Sex: Female : 1955 Arrival Date: 05/08/2024 Time: 15:22 Bed 20 Private MD: Diagnosis: Dyspnea;Elevated troponin Presentation: 05/08 15:37 Chief complaint: Patient states: Had bypass surgery 3 weeks ago and patient has had a cm10 productive cough since surgery and over the last 2 days it has gotten worse. Pt's daughter states that patient has been doing her breathing exercises and her incentive spirometer at home. Coronavirus screen: Client denies travel out of the [place] in the last 14 days. Ebola Screen: Patient denies travel to an Ebola-affected area in the 21 days before illness onset. No symptoms or risks identified at this time. Initial Sepsis Screen: Does the patient meet any 2 criteria? RR > 20 per min. HR > 90 bpm. Does the patient have a suspected source of infection? No. Patient's initial sepsis screen is negative. Risk Assessment: Do you want to hurt yourself or someone else? Patient reports no desire to harm self or others. Onset of symptoms was May 08, 2024. 15:37 Method Of Arrival: Wheelchair cm10 15:37 Acuity: OCTAVIO 3 cm10 Triage Assessment: 15:44 General: Appears in no apparent distress. uncomfortable, Behavior is calm, cooperative. cm10 Neuro: No deficits noted. Level of Consciousness is awake, alert, obeys commands, Oriented to person, place, time, situation, Appropriate for age. Respiratory: Airway is patent Respiratory effort is even, Respiratory pattern is tachypnea. 21:55 Respiratory: Reports cough that is non-productive, Onset: The symptoms/episode cp4 began/occurred at an unknown time. the patient has mild shortness of breath. Historical: - Allergies: 15:40 No Known Allergies; cm10 - Home Meds: 15:40 cefdinir oral [Active]; clopidogrel oral [Active]; torsemide oral [Active]; cm10 Methocarbamol Oral [Active]; pantoprazole oral [Active]; Ferrous Sulfate Oral [Active]; rosuvastatin oral [Active]; - PMHx: 15:40 breast cancer; Hypertensive disorder; Hypothyroidism; Hypercholesterolemia; cm10 - PSHx: 15:40 mastectomy; Coronary artery bypass graft; cm10 - Immunization history:: Adult Immunizations up to date. - Infectious Disease History:: Denies. - Social history:: Smoking status: Patient denies any tobacco usage or history of. Screenin:57 [facility] ED Fall Risk Assessment (Adult) History of falling in the last 3 months, cp4 including since admission No falls in past 3 months (0 pts) Confusion or Disorientation No (0 pts) Intoxicated or Sedated No (0 pts) Impaired Gait No (0 pts) Mobility Assist Device Used No (0 pt) Altered Elimination No (0 pt) Score/Fall Risk Level 0 - 2 = Low Risk Oriented to surroundings, Maintained a safe environment, Assessed \T\ reinforced patient's understanding of fall precautions, Hourly rounding (assess needs \T\ fall precautionary measures) done. Abuse screen: Denies threats or abuse. Nutritional screening: No deficits noted. Tuberculosis screening: No symptoms or risk factors identified. Assessment: 19:57 General: Appears uncomfortable, Behavior is calm, cooperative, appropriate for age. cp4 19:57 Pain: Denies pain. Neuro: Level of Consciousness is awake, alert, obeys commands, cp4 Oriented to person, place, time, situation. Cardiovascular: No deficits noted. Rhythm is sinus rhythm. Respiratory: Airway is patent Respiratory effort is even, unlabored, Breath sounds are clear bilaterally. GI: No signs and/or symptoms were reported involving the gastrointestinal system. : No signs and/or symptoms were reported regarding the genitourinary system. EENT: No signs and/or symptoms were reported regarding the EENT system. Derm: No signs and/or symptoms reported regarding the dermatologic system. Musculoskeletal: No signs and/or symptoms reported regarding the musculoskeletal system. Vital Signs: 15:37 BP 123 / 74; Pulse 105; Resp 24; Temp 98.1(O); Pulse Ox 98% on R/A; Weight 86.18 kg; cm10 Pain 0/10; 19:12 BP 139 / 66; Pulse 100; Resp 18; Pulse Ox 98% ; bp 20:18 BP 115 / 81; Pulse 98; Resp 18; Pulse Ox 96% ; cp4 21:30 BP 116 / 78; Pulse 97; Resp 18; Pulse Ox 99% ; cp4 15:37 Pain Scale: Adult 10 ED Course: 15:24 Patient arrived in ED. ra3 15:27 Sarah Beth Wiseman FNP-C [facility]. kb 15:27 Chavo Yuen MD is Attending Physician. kb 15:40 Triage completed. cm10 15:44 Arm band placed on Patient placed in an exam room, on a stretcher. cm10 16:27 Patient placed in an exam room, on a stretcher. ll1 16:35 Willy Alas, RN is Primary Nurse. bp 16:40 Radiology exam delayed due to IV insertion attempt and/or patient not having rs4 appropriate IV at this time. 16:40 Radiology exam delayed due to lab results not completed at this time. (BUN/Creatinine). rs4 16:45 Radiology exam delayed due to patient is not appropriately dressed for the exam at this ml6 time. 16:52 Chest Single View XRAY In Process Unspecified. EDMS 17:10 US Extremity Venous Unilateral Ltd In Process Unspecified. EDMS 17:35 Initial lab(s) drawn, by me, sent to lab. First set of blood cultures drawn by me, bp Second set of blood cultures drawn by me, EKG done, by ED staff, reviewed by Sarah Beth ECKERT. 17:36 Inserted saline lock: 20 gauge in left forearm, using aseptic technique. Blood bp collected. Flushed with 10 mL NS. 19:06 Notified Nurse Practitioner and/or Physician Manufacturing Quality Engineer of a critical lab result(s), me1 troponin 71.3, notified MALGORZATA Diaz. 19:52 Thorax Wo Con In Process Unspecified. EDMS 19:57 Placed in gown. Bed in low position. Call light in reach. Side rails up X 1. Provided cp4 Education on: cough. 19:57 No provider procedures requiring assistance completed. cp4 20:06 Primary Nurse role handed off by Willy Alas, RN cp4 20:06 Judith Hagan is Primary Nurse. cp4 21:05 Liudmila Zamorano MD is Hospitalizing Provider. kb 05/09 01:36 Patient admitted, IV remains in place. cp4 Administered Medications: No medications were administered Medication: 05/08 19:57 VIS not applicable for this client. cp4 Outcome: 21:05 Decision to Hospitalize by Provider. kb 21:40 Admitted to ER Hold. Please see [facility] for further documentation. cp4 21:40 Condition: stable cp4 21:40 Instructed on the need for admit, 05/09 04:55 Patient left the ED. cp4 Signatures: Dispatcher [employer] Sarah Beth Caicedo, ECHOMETER ENGINEER-C ECHOMETER ENGINEER-Willy Hays, RN RN bp Juan Ramon Colby RN RN ll1 [place] rs4 Lissette Cespedes RN RN cm10 Elsie Higginbotham RN RN me1 Wilma Morrison ml6 Judith Hagan cp4 Victorina Hernandes ra3
--- NOTE | 2024-05-08 21:05 | EDPHYS ---
Physician Documentation [facility] Name: Yu Joseph Age: 68 yrs Sex: Female : 1955 Arrival Date: 05/08/2024 Time: 15:22 Bed 20 Private MD: ED Physician Chavo Yuen HPI: 05/09 00:51 This 68 yrs old Female presents to ER via Wheelchair with complaints of kb Productive Cough. 00:51 Patient is a 68-year-old female who is 3 weeks postop from a CABG who presents for kb worsening cough and shortness of breath. States she has had a cough and shortness of breath since surgery but it is gotten worse over the last 2 days. Denies chest pain, fever.. Historical: - Allergies: 05/08 15:40 No Known Allergies; cm10 - Home Meds: 15:40 cefdinir oral [Active]; clopidogrel oral [Active]; torsemide oral [Active]; cm10 Methocarbamol Oral [Active]; pantoprazole oral [Active]; Ferrous Sulfate Oral [Active]; rosuvastatin oral [Active]; - PMHx: 15:40 breast cancer; Hypertensive disorder; Hypothyroidism; Hypercholesterolemia; cm10 - PSHx: 15:40 mastectomy; Coronary artery bypass graft; cm10 - Immunization history:: Adult Immunizations up to date. - Infectious Disease History:: Denies. - Social history:: Smoking status: Patient denies any tobacco usage or history of. ROS: 05/09 00:48 Constitutional: As per HPI kb Exam: 00:48 Constitutional: This is a well developed, well nourished patient who is awake, alert, kb and in no acute distress. Head/Face: Normocephalic, atraumatic. ENT: Moist Mucous membranes Cardiovascular: Regular rate Abdomen/GI: Soft, non-tender. No distention MS/ Extremity: Pulses equal, no cyanosis. Neurovascular intact. Full, normal range of motion. Neuro: Awake and alert, GCS 15, oriented to person, place, time, and situation. 00:48 Respiratory: mild respiratory distress is noted, Respirations: tachypnea, Breath sounds: are clear throughout, 00:48 Skin: Vertical surgical incision noted to chest. Horizontal incision to epigastric area with sutures in place. Incision down medial aspect of right leg from groin to calf with cecily in place. All surgical incisions are well-healing without redness, drainage, swelling. 00:52 Musculoskeletal/extremity: swelling to right lower extremity. kb Vital Signs: 05/08 15:37 BP 123 / 74; Pulse 105; Resp 24; Temp 98.1(O); Pulse Ox 98% on R/A; Weight 86.18 kg; cm10 Pain 0/10; 19:12 BP 139 / 66; Pulse 100; Resp 18; Pulse Ox 98% ; bp 20:18 BP 115 / 81; Pulse 98; Resp 18; Pulse Ox 96% ; cp4 21:30 BP 116 / 78; Pulse 97; Resp 18; Pulse Ox 99% ; cp4 15:37 Pain Scale: Adult cm10 MDM: 15:27 Medical Screening Exam initiated kb 05/09 00:50 Differential Diagnosis: Other Pulmonary edema, pulmonary embolism, pneumonia, upper kb respiratory infection. Data reviewed: vital signs, nurses notes. Consideration of Admission/Observation Patient was admitted/placed on observation. Escalation of care including admission/observation considered. Management of patient was discussed with the following: Hospitalist: Discussed case with Tarsha who accepts patient for admission under Dr. Zamorano. Historians other than the Patient: Daughter/Son: Daughter. Counseling: I had a detailed discussion with the patient and/or guardian regarding the historical points, exam findings, and any diagnostic results supporting the discharge/admit diagnosis, lab results, radiology results, the need for further work-up and treatment in the hospital. 05/08 15:53 Order name: Blood Culture Adult (2) kb 05/08 15:53 Order name: CBC with Diff; Complete Time: 17:53 kb 05/08 15:53 Order name: CMP; Complete Time: 19:15 kb 05/08 15:53 Order name: Lactate w/ 2H reflex if indic.; Complete Time: 18:10 kb 05/08 15:53 Order name: Protime (+inr); Complete Time: 18:03 kb 05/08 15:53 Order name: Ptt, Activated; Complete Time: 18:03 kb 05/08 15:53 Order name: Troponin High Sensitivity; Complete Time: 19:15 kb 05/08 15:53 Order name: BNP; Complete Time: 19:15 kb 05/08 22:03 Order name: Basic Metabolic Panel EDMS 05/08 22:03 Order name: CBC with Automated Diff EDMS 05/08 22:03 Order name: Lactate w/ 2H reflex if indic. EDMS 05/08 22:03 Order name: Liver (Hepatic) Function EDMS 05/08 22:03 Order name: Magnesium EDMS 05/08 22:03 Order name: NT PRO-BNP EDKY 05/08 22:03 Order name: Phosphorus EDKY 05/08 22:03 Order name: Thyroid Stimulating Hormone EDKY 05/08 22:03 Order name: Urinalysis w/ reflexes EDMS 05/08 22:03 Order name: Lipid Profile EDMS 05/08 22:03 Order name: Lipid Profile EDKY 05/08 22:03 Order name: Troponin High Sensitivity EDKY 05/08 22:03 Order name: Troponin High Sensitivity EDKY 05/08 22:03 Order name: Troponin High Sensitivity EDKY 05/08 22:03 Order name: Troponin High Sensitivity EDKY 05/08 15:53 Order name: Chest Single View XRAY; Complete Time: 17:14 kb 05/08 15:53 Order name: US Extremity Venous Unilateral Ltd; Complete Time: 17:14 kb 05/08 19:22 Order name: Thorax Wo Con; Complete Time: 20:11 EDKY 05/08 22:03 Order name: CONS Physician Consult EDKY 05/08 22:04 Order name: Respiratory Therapy Consult EDKY 05/08 15:53 Order name: Accucheck; Complete Time: 17:34 kb 05/08 15:53 Order name: Cardiac monitoring; Complete Time: 17:34 kb 05/08 15:53 Order name: EKG - Nurse/Tech; Complete Time: 17:34 kb 05/08 15:53 Order name: IV Saline Lock - Large Bore; Complete Time: 17:34 kb 05/08 15:53 Order name: Labs collected and sent; Complete Time: 17:34 kb 05/08 15:53 Order name: O2 Per Protocol; Complete Time: 17:34 kb 05/08 15:53 Order name: O2 Sat Monitoring; Complete Time: 17:34 kb 05/08 15:53 Order name: Vital Signs; Complete Time: 17:34 kb Administered Medications: No medications were administered Disposition: 07:44 Co-signature as Attending Physician, Chavo Yuen MD I reviewed the patient's care rn provided by the Advanced Practice Provider and agree with the diagnosis and treatment plan. Disposition Summary: 05/08/24 21:05 Hospitalization Ordered Notes: Hospitalization Status: Observation kb Provider: Liudmila Zamorano Condition: Stable kb Problem: new kb Symptoms: are unchanged kb Bed/Room Type: Standard kb Location: Telemetry/MedSurg (observation)(05/09/24 04:00) kl Room Assignment: 413(05/09/24 04:00) kl Diagnosis - Dyspnea kb - Elevated troponin kb Forms: - Medication Reconciliation Form kb - SBAR form kb - Leadership Thank You Letter kb Signatures: Dispatcher [employer] EDMS Sarah Beth Wiseman, CAREER TECHNICAL EDUCATION INSTRUCTOR-C CAREER TECHNICAL EDUCATION INSTRUCTOR-CkCecile Guo RN RN Chavo Jaimes MD MD rn Able, Lacie, RN RN lg3 Martinez, Clarissa, RN RN cm10 Corrections: (The following items were deleted from the chart) 05/08 15:53 15:53 BLOOD CULTURE*+BA.LAB.BRZ ordered. EDMS EDMS 15:53 15:53 CBC+H.LAB.BRZ ordered. EDMS EDMS 15:53 15:53 COMPREHENSIVE METABOLIC PANEL+C.LAB.BRZ ordered. EDMS EDMS 15:53 15:53 LACTATE+C.LAB.BRZ ordered. EDMS EDMS 15:53 15:53 PROTIME (+INR)+COAG.LAB.BRZ ordered. EDMS EDMS 15:53 15:53 PTT, ACTIVATED+COAG.LAB.BRZ ordered. EDMS EDMS 15:53 15:53 Troponin High Sensitivity+C.LAB.BRZ ordered. EDMS EDMS 15:53 15:53 PROBNP+C.LAB.BRZ ordered. EDMS EDMS 15:53 15:53 Chest Single View+RAD.RAD.BRZ ordered. EDMS EDMS 15:53 15:53 Extremity Venous Uni Ltd+US.RAD.BRZ ordered. EDMS EDMS 15:54 15:54 Chest For PE Angio+CT.RAD.BRZ ordered. EDMS EDMS 21:34 21:05 Telemetry/MedSurg (observation) kb lg3 21:34 21:05 kb lg3 05/09 04:00 05/08 21:34 [facility] ER HOLD lg3 kl 05/09 04:00 05/08 21:34 ERHOLD- lg3 kl
--- NOTE | 2024-05-08 21:52 | P.HP ---
Certification for Inpatient Patient admitted to: Observation With expected LOS: <2 Midnights Practitioner: I am a practitioner with admitting privileges, knowledge of patient current condition, hospital course, and medical plan of care. Services: Services provided to patient in accordance with Admission requirements found in Title 42 Section 412.3 of the Code of Federal Regulations Patient History Date of Service: 05/08/24 Reason for admission: elevated troponin History of Present Illness: 68-year-old woman with a past medical history significant for breast cancer status post masectomy, CAD, HTN, HDL, and hypothyroidism presented to the emergency room complaining of cough causing shortness of breath. The patient's is present at bedside. The patient states that she had a recent CABG procedure about 3 weeks ago-Cecily still intact in right lower extremity, and her cough was present before this procedure. However, the patient believes her cough is now worse after the procedure. She has not attempted anything to improve her cough and states nothing worsens her cough. Patient denies chest pain, but was found to have elevated troponin this visit. Allergies No Known Allergies Allergy (Verified 01/21/23 13:53) Home Medications: Amlodipine [Norvasc*] 5 mg PO DAILY 01/21/23 Levothyroxine [Synthroid*] 75 mcg PO [id number] 01/21/23 Meloxicam [Mobic*] 7.5 mg PO DAILYPRN PRN 01/21/23 Olmesartan/Hydrochlorothiazide [Olmesartan-Hctz 40-25 mg Tab] 1 tab PO DAILY 01/21/23 Rosuvastatin Calcium 20 mg PO BEDTIME 01/21/23 Aspirin [Aspirin EC 81 MG] 81 mg PO DAILY #30 tab 01/22/23 Metoprolol Tartrate 25 mg PO BID #60 tab 01/22/23 - Past Medical/Surgical History Diabetic: No -: HTN -: Hypothyroidism -: HLD -: Prediabetes- No meds taking -: Breast cancer- R -: Wesley Masetectomy with Right side Lymph node removal -: CABG 04/2024 - Family History Brother -: Diabetes Mother -: Hypertension - Social History Smoking Status: Unknown if ever smoked Alcohol use: No CD- Drugs: No Caffeine use: Yes Review of Systems Respiratory: Cough, Shortness of Breath Physical Examination - Vital Signs Temperature: 98.1 F Blood Pressure: 136/74 Pulse: 95 Respirations: 18 Pulse Ox (%): 100 - Physical Exam General: Oriented x3 HEENT: Atraumatic, Normocephalic Neck: JVD not distended Respiratory: Normal air movement Cardiovascular: No gallops, No rubs, No murmurs Gastrointestinal: Normal bowel sounds, Non-distended Musculoskeletal: No swelling, Swelling (mildly edematous RLE with cecily intact (no signs of infection)) Neurological: Normal strength at 5/5 x4 extr, Sensation intact - Studies Laboratory Data (last 24 hrs) 05/08/24 05/08/24 05/08/24 18:18 17:35 17:35 WBC 6.90 Hgb 12.5 Hct 38.1 Plt Count 153 PT 13.7 H INR 1.23 APTT 21.2 L Sodium 139 Potassium 3.0 L BUN 19 H Creatinine 1.57 H Glucose 111 H Total Bilirubin 0.5 AST 22 ALT 22 Alkaline Phosphatase 146 H Assessment and Plan - Problems (Diagnosis) (1) Elevated troponin Current Visit: Yes Status: Acute - Plan Elevated troponin: Admit to observation with telemetry Cardiology consulted Will continue to trend troponin CXR- no acute abnormality CT Chest- no pulmonary embolism, but small left pleural effusion US of RLE- no DVT - Advance Directives Does patient have a Living Will: No Does patient have a Durable POA for Healthcare: No - Code Status/Comfort Care Code Status: Full Code
[2024-05-08] MEDS ORDERED: ACETAMINOPHEN 325 MG TABLET PO PRN (21:57)
[2024-05-08] MEDS ORDERED: ALBUTEROL 2.5 MG/3 ML NEB SOL NEB PRN (21:57)
[2024-05-08] MEDS ORDERED: ZOLPIDEM TARTRATE 5 MG TABLET PO PRN (21:57)
[2024-05-08] MEDS ORDERED: ONDANSETRON 4 MG (ODT) TAB PO PRN (21:57)
[2024-05-09] MEDS ORDERED: HEPARIN 5000 UNIT/ML 1 ML VIAL ONE (00:43)
[2024-05-09] MEDS: HEPARIN 5000 UNIT/ML 1 ML VIAL SQ SCH (00:45)
[2024-05-09 01:30] VITALS: BMI 32.4
[2024-05-09 05:04] VITALS: O2SAT 99
[2024-05-09] MEDS: PNEUMOCOCCAL VACCINE 0.5 ML IMVAC ONE (08:00)
[2024-05-09] MEDS: FLU (Fluarix Triv) TS24-25(6MOS UP)/PF 45 MCG/0.5 ML Syringe IM ONE (08:50)
[2024-05-09] MEDS: FUROSEMIDE 40 MG/4 ML VIAL IV SCH (09:09)
[2024-05-09 09:36] LABS: Absolute Basophils 0.1 K/uL (0-0.5); Absolute Eosinophils 0.2 K/uL (0-0.5); Absolute Lymphocytes (CBC) 1.1 K/uL (0.7-4.9); Absolute Monocytes 0.4 K/uL (0.1-1.3); Absolute Neutrophil 2.6 K/uL (1.8-8.0); Basophils % 1.2 % (0-1.3); Eosinophils % 4.7 % (0-4.4); Hemoglobin 11.7 g/dL (12.0-15.0); Lymphocytes % 24.9 % (15.3-44.8); MCH 29.4 pg (27.0-35.0); MCHC 33.3 g/dL (32.0-36.0); MCV 88.4 fL (80-100); MPV 10.4 fL (7.6-11.3); Monocytes % 10.2 % (3.3-12.3); Nucleated Red Blood Cells % 0.2 % (0-0); Platelets 127 thou/uL (152-406); RBC Red Blood Cell Count 3.96 M/uL (3.86-4.86); Red Cell Distribution Width 15.8 % (12.1-15.2)
[2024-05-09 09:58] LABS: Albumin/Globulin Ratio 0.8 (1.1-1.8); Anion Gap 7.8 mEq/L (5.0-15.0); Bilirubin Direct 0.2 mg/dL (0-0.2); Bilirubin Indirect, Calculated 0.2 mg/dL (0.2-0.8); Bilirubin Total 0.4 mg/dL (0.2-1.0); Magnesium 2.1 mg/dL (1.6-2.4); Potassium 2.8 mEq/L (3.5-5.1)
[2024-05-09 09:59] LABS: Thyroid Stimulating Hormone 16.7 uIU/mL (0.358-3.740)
[2024-05-09 10:00] LABS: Troponin High Sensitivity 68.5 pg/mL (<58.9)
[2024-05-09 10:27] LABS: Specific Gravity 1.007 (1.005-1.030); Sqamous Epithelial <5 /HPF (None Seen); Urine Bacteria None Seen /HPF (<20); Urine Bilirubin NEGATIVE (Negative); Urine Blood Negative (Negative); Urine Clarity Clear (Clear); Urine Color Colorless (Yellow); Urine Culture Reflex Order NOT NEEDED; Urine Glucose NEGATIVE (Negative); Urine Ketones NEGATIVE (Negative); Urine Microscopic Reflex YN ORDER UMIC; Urine Nitrite NEGATIVE (Negative); Urine Protein NEGATIVE (Negative); Urine RBC <5 /HPF (None Seen); Urine Urobilinogen Normal (Normal); Urine WBC None Seen /HPF (<5); Urine Yeast (Budding) Trace /HPF (None Seen)
--- NOTE | 2024-05-09 10:50 | P.CNS ---
Date of Consult: 05/09/24 Chief Complaint: elevated troponin History of Present Illness: Patient with PMH of CAD recent CABG X4 done in [facility], Heart failure, presented with persistent cough since she was discharged from the hospital, associated with phlegm, denies chest pain, no palpitations, no syncope. Allergies No Known Allergies Allergy (Verified 05/09/24 05:19) Home medications list reviewed: Yes Home Medications: Levothyroxine [Synthroid*] 88 mcg PO [id number] 01/21/23 Rosuvastatin Calcium 20 mg PO DAILY 01/21/23 Clopidogrel Bisulfate [Plavix] 75 mg PO DAILY 05/08/24 Docusate Sodium [Dok] 100 mg PO BID 05/08/24 Ferrous Sulfate [Feosol] 325 mg PO DAILY 05/08/24 Pantoprazole [Protonix Tab] 40 mg PO DAILY 05/08/24 Potassium Chloride 10 meq PO BID 05/08/24 Torsemide [Soaanz] 20 mg PO BID 05/08/24 methocarbamoL [Methocarbamol] 500 mg PO TID 05/08/24 - Past Medical/Surgical History Diabetic: No -: HTN -: Hypothyroidism -: HLD -: Prediabetes- No meds taking -: Breast cancer- R -: Wesley Masetectomy with Right side Lymph node removal -: CABG 04/2024 - Family History Brother Medical History: Diabetes Mother Medical History: Hypertension - Social History Alcohol use: No CD- Drugs: No Caffeine use: Yes Review of Systems 10-point ROS is otherwise unremarkable Physical Examination Temp Pulse Resp BP Pulse Ox 97.8 F 86 18 119/78 98 05/09/24 08:00 05/09/24 09:09 05/09/24 08:00 05/09/24 09:09 05/09/24 08:00 General: Alert, In no apparent distress HEENT: Atraumatic, PERRLA, Mucous membr. moist/pink, EOMI, Sclerae nonicteric Neck: Supple, 2+ carotid pulse no bruit, No LAD, Without JVD or thyroid abnormality Respiratory: Clear to auscultation bilaterally, Normal air movement Cardiovascular: Regular rate/rhythm, Normal S1 S2, Edema (+1 to bilateral lower extemities.) Gastrointestinal: Normal bowel sounds, No tenderness Musculoskeletal: No tenderness Integumentary: No rashes Neurological: Normal gait, Normal speech, Normal tone, Normal affect Lymphatics: No axilla or inguinal lymphadenopathy Laboratory Data (last 24 hrs) 05/08/24 05/08/24 05/08/24 18:18 17:35 17:35 WBC 6.90 Hgb 12.5 Hct 38.1 Plt Count 153 PT 13.7 H INR 1.23 APTT 21.2 L Sodium 139 Potassium 3.0 L BUN 19 H Creatinine 1.57 H Glucose 111 H Total Bilirubin 0.5 AST 22 ALT 22 Alkaline Phosphatase 146 H - Problems (1) Acute on chronic heart failure Current Visit: Yes Status: Acute Plan: IV diuresis with Lasix 40 mg IV BID Monitor input and output and electrolytes. will need to be started on Coreg 3.125 mg po BID and Lisinopril 2.5 mg daily (2) Elevated troponin Current Visit: Yes Status: Acute Plan: with recent CABG x 4, very mild troponin elevation that is down trending, no chest pain continue Plavix 75 mg daily Continue Crestor. Get Echo (3) HTN (hypertension) Current Visit: No Status: Acute Plan: will adjust medications as above slowly.
--- NOTE | 2024-05-09 11:08 | EKG ---
Test Date: 2024-05-08 Test Time: 17:08:28 Tape Cutting Machine Operator: BP MEASUREMENT RESULTS: Intervals: Rate: 100 IA: 122 QRSD: 76 QT: 366 QTc: 472 [place]ornado: P: 53 IA: 122 QRS: 17 T: 26 INTERPRETIVE STATEMENTS: Normal sinus rhythm Possible Left atrial enlargement Left ventricular hypertrophy Nonspecific T wave abnormality Prolonged QT Abnormal ECG Compared to ECG 01/21/2023 07:46:58 Left ventricular hypertrophy now present T-wave abnormality now present Prolonged QT interval now present ST (T wave) deviation no longer present Electronically Signed On 05-09-24 11:07:02 CDT by Rich Ro
[2024-05-09] MEDS: POTASSIUM 25 MEQ EFFERV TAB PO ONE (13:18)
[2024-05-09] MEDS: KCL 20 MEQ/100 mL IVPB 20 MEQ/100 ML BAG IV SCH (13:24)
[2024-05-09] MEDS ORDERED: ALBUTEROL 2.5 MG/3 ML NEB SOL NEB PRN (13:36)
[2024-05-09] MEDS: methocarbamoL 500 MG TAB PO SCH (13:40)
[2024-05-09] MEDS: NA CHLORIDE 0.9% 250 ML IV ONE (13:41)
[2024-05-09] MEDS: TORSEMIDE 20 MG TAB PO SCH (20:36)
[2024-05-09] MEDS: ROSUVASTATIN 10 MG TAB PO SCH (20:37)
[2024-05-09] MEDS: POTASSIUM 25 MEQ EFFERV TAB PO SCH (20:38)
[2024-05-09] MEDS: DOCUSATE NA 100 MG CAP PO SCH (20:38)
[2024-05-09] MEDS ORDERED: POTASSIUM CL SA 10 MEQ TAB PO SCH (21:00)
[2024-05-10] MEDS: LEVOTHYROXINE SOD 0.088 MG TAB PO SCH (06:26)
[2024-05-10 06:38] LABS: Absolute Eosinophils 0.2 K/uL (0-0.5); Absolute Lymphocytes (CBC) 1.1 K/uL (0.7-4.9); Absolute Monocytes 0.4 K/uL (0.1-1.3); Absolute Neutrophil 2.4 K/uL (1.8-8.0); Hematocrit 34.3 % (36.0-45.0); Hemoglobin 11.2 g/dL (12.0-15.0); Lymphocytes % 26.4 % (15.3-44.8); MCH 29.1 pg (27.0-35.0); MCHC 32.8 g/dL (32.0-36.0); MCV 88.6 fL (80-100); MPV 11.5 fL (7.6-11.3); Neutrophils % 57.6 % (41.7-73.7); Platelets 111 thou/uL (152-406); RBC Red Blood Cell Count 3.87 M/uL (3.86-4.86)
[2024-05-10 08:15] LABS: Albumin/Globulin Ratio 0.7 (1.1-1.8); Anion Gap 9.2 mEq/L (5.0-15.0); Bilirubin Total 0.5 mg/dL (0.2-1.0); Globulin 4.1 g/dL (2.3-3.5); Magnesium 2.1 mg/dL (1.6-2.4); Potassium 3.2 mEq/L (3.5-5.1); Protein, Total 7.1 g/dL (6.4-8.2)
[2024-05-10 08:16] LABS: Troponin High Sensitivity 61.5 pg/mL (<58.9)
[2024-05-10] MEDS: CLOPIDOGREL 75 MG TABLET PO SCH (10:08)
[2024-05-10] MEDS: FERROUS SULFATE 325 MG TAB PO SCH (10:09)
[2024-05-10] MEDS: PANTOPRAZOLE 40MG TABLET PO SCH (10:10)
[2024-05-10 12:27] VITALS: BP 118/69
[2024-05-10] MEDS: FUROSEMIDE 40 MG/4 ML VIAL IV ONE (12:27)
[2024-05-10 12:32] VITALS: TEMP 98
--- NOTE | 2024-05-10 14:51 | ECHO ---
HEIGHT: 5 ft 4 in WEIGHT: 189 lb 0 oz DATE OF STUDY: 05/09/[address]: Rich Ro MD 2-DIMENSIONAL: YES M.MODE: YES DOPPLER: YES COLOR FLOW: YES TDS: PORTABLE: YES DEFINITY: BUBBLE STUDY: DIAGNOSIS: HEART FAILURE CARDIAC HISTORY: CATHERIZATION: NO SURGERY: YES PROSTHETIC VALVE: NO PACEMAKER: NO MEASUREMENTS (cm) DIASTOLIC (NORMALS) SYSTOLIC (NORMALS) IVSd 1.0 (0.6-1.2) LA Diam 2.1 (1.9-4.0) LVEF 57% LVIDd 2.9 (3.5-5.7) LVIDs 2.1 (2.0-3.5) %FS 29% LVPWd 1.0 (0.6-1.2) Ao Diam 2.3 (2.0-3.7) 2 DIMENSIONAL ASSESSMENT: RIGHT ATRIUM: NOT SEEN LEFT ATRIUM: NORMAL RIGHT VENTRICLE: NOT SEEN LEFT VENTRICLE: NORMAL TRICUSPID VALVE: MILD TRICUSPID REGURGITATION MITRAL VALVE: MILD MITRAL REGURGITATION PULMONIC VALVE: NOT SEEN AORTIC VALVE: NOT WELL SEEN PERICARDIAL EFFUSION: NONE AORTIC ROOT: NOT SEEN LEFT VENTRICULAR WALL MOTION: APPEARS NORMAL DOPPLER/COLOR FLOW: SEE BELOW COMMENTS: 1. LIMITED VIEWS WITH POOR QUALITY ECHOCARDIOGRAM 2. OVERALL LEFT VENTRICULAR EJECTION FRACTION APPEARS NORMAL TECHNOLOGIST: CHRIS MENDEZ
--- NOTE | 2024-05-12 19:31 | P.DS ---
Admission Date: 05/10/24 Discharge Date: 05/10/24 Disposition: ROUTINE DISCHARGE Discharge Condition: GOOD Reason for Admission: elevated troponin Brief History of Present Illness: 68-year-old woman with a past medical history significant for breast cancer status post masectomy, CAD, HTN, HDL, and hypothyroidism presented to the emergency room complaining of cough causing shortness of breath. The patient's is present at bedside. The patient states that she had a recent CABG procedure about 3 weeks ago-Kali still intact in right lower extremity, and her cough was present before this procedure. However, the patient believes her cough is now worse after the procedure. She has not attempted anything to improve her cough and states nothing worsens her cough. Patient denies chest pain, but was found to have elevated troponin this visit. - Physical Exam General: Oriented x3 HEENT: Atraumatic, Normocephalic Neck: JVD not distended Respiratory: Normal air movement Cardiovascular: No gallops, No rubs, No murmurs Gastrointestinal: Normal bowel sounds, Non-distended Musculoskeletal: No swelling, Swelling (mildly edematous RLE with kali intact Neurological: Normal strength at 5/5 x4 extr, Sensation intact Hospital Course: 68-year-old woman with a past medical history significant for breast cancer status post masectomy, CAD, HTN, HDL, and hypothyroidism presented to the emergency room complaining of cough causing shortness of breath. She was noted to have elevated troponin, cardiology was consulted, CT of the chest shows small pleural effusion, no PE, ultrasound of the right lower extremity shows no DVT. Tolerating diet, stable to discharge home, follow-up with cardiology after discharge Assessment acute on chronic heart failure-was seen by cardiology, treated with Lasix twice daily, discharged home on Coreg, lisinopril, Plavix, antilipid Elevated troponin, improved with Lasix History of CABG x 4 History of [id number] with cardiology after discharge Echocardiogram 1. LIMITED VIEWS WITH POOR QUALITY ECHOCARDIOGRAM 2. OVERALL LEFT VENTRICULAR EJECTION FRACTION APPEARS NORMAL Continue home medicines as previously prescribed GOAL: Clear understanding of disease process INSTRUCTIONS: Physician Discharge Instructions: -Follow-up with cardiology after discharge, call office for appointment -Follow-up with PCP in 1 to 2 weeks -Please call Dr. Zamorano at [phone] if any questions regarding hospital stay -Please call nursing station at [phone] if any nursing or medication questions -Return to the emergency room if symptoms worsen Diet: ADA, low sodium Activity: Fall precautions Vital Signs/Physical Exam: Temp Pulse Resp BP Pulse Ox 98 F 96 H 16 118/69 99 05/10/24 12:00 05/10/24 12:27 05/10/24 14:10 05/10/24 12:27 05/10/24 14:10 Laboratory Data at Discharge: WBC 4.20 thou/uL (4.3-10.9) L 05/10/24 05:42 Hgb 11.2 g/dL (12.0-15.0) L 05/10/24 05:42 Hct 34.3 % (36.0-45.0) L 05/10/24 05:42 Plt Count 111 thou/uL (152-406) L 05/10/24 05:42 PT 13.7 SECONDS (9.4-12.5) H 05/08/24 17:35 INR 1.23 05/08/24 17:35 APTT 21.2 SECONDS (24.3-36.9) L 05/08/24 17:35 Sodium Cancelled 05/10/24 Unknown Potassium Cancelled 05/10/24 Unknown BUN Cancelled 05/10/24 Unknown Creatinine Cancelled 05/10/24 Unknown Glucose Cancelled 05/10/24 Unknown Phosphorus 3.0 mg/dL (2.5-4.9) 05/09/24 09:20 Magnesium Cancelled 05/10/24 Unknown Total Bilirubin Cancelled 05/10/24 Unknown AST Cancelled 05/10/24 Unknown ALT Cancelled 05/10/24 Unknown Alkaline Phosphatase Cancelled 05/10/24 Unknown Triglycerides 129 mg/dL (<150) 05/09/24 09:20 Cholesterol 186 mg/dL (<200) 05/09/24 09:20 HDL Cholesterol 29 mg/dL (40-60) L 05/09/24 09:20 Cholesterol/HDL Ratio 6.41 05/09/24 09:20 Home Medications: Levothyroxine [Synthroid*] 88 mcg PO [id number] 01/21/23 Rosuvastatin Calcium 20 mg PO DAILY 01/21/23 Clopidogrel Bisulfate [Plavix*] 75 mg PO DAILY 05/08/24 Docusate Sodium [Dok] 100 mg PO BID 05/08/24 Ferrous Sulfate [Feosol] 325 mg PO DAILY 05/08/24 Pantoprazole [Protonix Tab*] 40 mg PO DAILY 05/08/24 Potassium Chloride 10 meq PO BID 05/08/24 Torsemide [Soaanz] 20 mg PO BID 05/08/24 methocarbamoL [Methocarbamol] 500 mg PO TID 05/08/24 Physician Discharge Instructions: [facility] Call Amaury Sharma at for questions or concerns after discharge. Expect a call within 1-2 business days of discharge. Alternate: [facility] . -DC IV and DC home -Follow-up with PCP in 1 to 2 weeks -Follow-up with [employer] and CT Surgeon in 1 to 2 weeks -Please call Dr. Zamorano at [phone] if any questions regarding hospital stay -Please call nursing station at [phone] if any nursing or medication questions -Return to the emergency room if symptoms worsen Diet: AHA Activity: Fall precautions Followup: Rich Ro MD [ACTIVE - CAN ADMIT] - 1-2 Weeks Long Garrison DO [Primary Care Provider] - 1-2 Weeks Time spent managing pt's care (in minutes): 45
== END 2024-05-10 16:02 | disposition home or self-care (01) | DRG 291 ==
LOC: ER 15:22 → ERHOLD 21:57 → 4TH 05-09 04:45 → OBSVTOIN 05-10 08:44
PROVIDERS: ADMIT Hospitalist; ATTEND Hospitalist
DX: I11.0 Hypertensive heart disease with heart failure (principal); I50.31 Acute diastolic (congestive) heart failure; E03.9 Hypothyroidism, unspecified; E78.00 Pure hypercholesterolemia, unspecified; I25.10 Atherosclerotic heart disease of native coronary artery without angina pectoris; R79.89 Other specified abnormal findings of blood chemistry; Z23 Encounter for immunization; Z95.1 Presence of aortocoronary bypass graft; Z85.3 Personal history of malignant neoplasm of breast; Z79.82 Long term (current) use of aspirin; Z90.13 Acquired absence of bilateral breasts and nipples; Z79.02 Long term (current) use of antithrombotics/antiplatelets; Z79.899 Other long term (current) drug therapy; Z79.890 Hormone replacement therapy
CPT/HCPCS: 36415; 71045; 71250; 80048; 80053; 80061; 80076; 81001; 83605; 83735; 83880; 84100; 84132; 84439; 84443; 84484; 85025; 85610; 85730; 87040; 93005; 93306; 93971; 99285; G0378; J1644; J1940; J3480; J7050